=== PATIENT | female | born 1995 | race Caucasian/White ===

== ENCOUNTER → 2017-10-02 | Outpatient (CLI) | payer BC ==
[~2017-10-02] MED LIST: IOPAMIDOL 370 MG/ML 200 ML INFUS..BTL INJ ONE; SODIUM CHLORIDE 0.9% 250ML 250 ML ONE
--- NOTE | 2017-10-02 19:27 | Diagnostic Imaging Report ---
EXAM: CT Abdomen and Pelvis WITHOUT and WITH contrast INDICATION: Hematuria COMPARISON: None. TECHNIQUE: Abdomen and pelvis were scanned utilizing a multidetector helical scanner from the lung base to the pubic symphysis before and after administration of IV contrast. Coronal and sagittal reformations were obtained. Hematuria protocol was performed. Three-D reformatted images were obtained of the kidneys, ureters and urinary bladder IV CONTRAST: 150 mL of Isovue-370 ORAL CONTRAST: Water RADIATION DOSE: Total DLP: 795.85 mGy*cm Estimated effective dose: (DLP x 0.015 x size factor) mSv COMPLICATIONS: None FINDINGS: LINES and TUBES: None. LOWER THORAX: Unremarkable HEPATOBILIARY: No focal hepatic lesions. No biliary ductal dilation. GALLBLADDER: Contracted. No radio-opaque stones or sludge. No wall thickening. SPLEEN: No splenomegaly. PANCREAS: No focal masses or ductal dilatation. 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 Kidneys enhance symmetrically. No hydronephrosis. No cystic or solid mass lesions. No stones. GI TRACT: No abnormal distention, wall thickening, or evidence of bowel obstruction. Appendix is normal. PELVIC ORGANS/BLADDER: Unremarkable. LYMPH NODES: No lymphadenopathy. VESSELS: Unremarkable. PERITONEUM / RETROPERITONEUM: No free air or fluid. BONES: Unremarkable. SOFT TISSUES: Unremarkable. IMPRESSION: 1. Contracted gallbladder. No inflammatory changes are seen in the region. 2. 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 No urinary tract calcifications are seen. Signed by: Dr. Leon Armstrong M.D. on 10/02/2017 7:24 PM
== END ==
LOC: CT 16:44
PROVIDERS: ATTEND Family Medicine
DX: R10.11 Right upper quadrant pain (principal); R11.0 Nausea; M54.5 Low back pain; R31.9 Hematuria, unspecified
CPT/HCPCS: 74178; J7050; Q9967

== ENCOUNTER → 2017-10-09 | Outpatient (CLI) | payer BC ==
[~2017-10-09] MED LIST changes: -IOPAMIDOL 370 MG/ML 200 ML INFUS..BTL INJ ONE; +SINCALIDE 3 MCG/VIAL INJ ONE; -SODIUM CHLORIDE 0.9% 250ML 250 ML ONE
--- NOTE | 2017-10-12 15:05 | Diagnostic Imaging Report ---
EXAM: HIDA Scan INDICATION: 21 F with RUQ abdominal pain with meals x2 weeks Report: Following the administration of 6.6 mCi of Tc-99m mebrofenin, dynamic images of the abdomen in the anterior projection were obtained through 60 minutes. Additional static images were obtained 1.5, 2, 2.5 and 3 hours. Perfusion of the liver is normal. Extraction of tracer from the blood pool by the liver parenchyma is normal. Tracer appears promptly with in the biliary tract. Tracer is seen in the gallbladder by 12 minutes and fills adequately but completely empties at 36 minutes and does not refill again until 90 minutes. Tracer is seen in the small bowel by 10 minutes. It is not possible to obtain a gallbladder ejection fraction on the spontaneous contraction of the gallbladder because of the proximity of the common bile duct and efferent loop of the duodenum, however, the gallbladder completely empties. Impression: 1. Filling of the gallbladder excludes acute cystic duct obstruction/acute cholecystitis. 2. A gallbladder ejection fraction was not obtained because the gallbladder emptied spontaneously and did not refill until 90 minutes. 3. Spontaneous complete emptying of the gallbladder during the study does not support the clinical diagnosis of chronic cholecystitis/gallbladder dyskinesia. Signed by: Dr. Le Potter M.D. on 10/12/2017 3:02 PM
== END ==
LOC: NM 11:16
PROVIDERS: ATTEND Family Medicine
DX: K82.0 Obstruction of gallbladder (principal)
CPT/HCPCS: 78226; 81025; A9537; J2805

== ENCOUNTER → 2017-10-26 | Day surgery (SDC) | payer BC ==
[~2017-10-26] MED LIST changes: +MIDAZOLAM HCL 2 MG/2 ML VIAL ONE; +PANTOPRAZOLE 40 MG 10ML VIAL ONE; -SINCALIDE 3 MCG/VIAL INJ ONE; +TRINESSA1 EACH PO
--- NOTE | 2017-10-26 12:36 | Operative Report ---
DATE OF PROCEDURE: October 26, 2017 REFERRING PHYSICIAN: Dr. Bishnu Alcaraz PROCEDURE PERFORMED: Esophagogastroduodenoscopy with biopsies. INDICATIONS FOR EGD: Upper abdominal pain, heartburn, indigestion. MEDICATION: Patient was done under MAC. Please see anesthesiologist's note. PROCEDURE: With the patient in the left lateral decubitus position, the flexible fiberoptic Olympus gastroscope was introduced into the esophagus under direct visualization without any difficulty. There was some patchy erythema noted in the distal esophagus. The scope was then advanced with ease into the stomach. Mucosa overlying the antrum and the body revealed some diffuse erythema and low-grade edema, and biopsies were obtained and sent to stain for H. pylori. The pylorus was of normal contour and shape. It was intubated with ease, and the scope was advanced all the way to the 2nd portion of the duodenum. The duodenal folds appeared somewhat flattened, and biopsies were obtained to rule out celiac disease. Mucosa overlying the duodenal bulb appeared to be within normal limits. The scope was then withdrawn back into the stomach and retroflexed, and the mucosa overlying the fundus and the cardia appeared to be within normal limits. The scope was then straightened out. The stomach was decompressed. The scope was subsequently withdrawn. Patient tolerated the procedure well. IMPRESSION 1. Mild distal esophagitis. 2. Gastritis, biopsied. Biopsy sent to stain for H. pylori. 3. Rule out sprue. PLAN: Follow up histology. Initiate Protonix 40 mg 1 p.o. q.a.m. a.c. Job#: [id number] cc:ORTEGA ALCARAZ DO
== END | disposition home or self-care (01) ==
LOC: OR 10:46
PROVIDERS: ATTEND Internal Medicine Gastroenterology
DX: K29.70 Gastritis, unspecified, without bleeding (principal); K20.9 Esophagitis, unspecified; K59.00 Constipation, unspecified; I45.6 Pre-excitation syndrome; F32.9 Major depressive disorder, single episode, unspecified; Z88.0 Allergy status to penicillin; Z88.2 Allergy status to sulfonamides
CPT/HCPCS: 43239; 81025; J2250

== ENCOUNTER → 2019-08-29 | Day surgery (SDC) | payer OTHER ==
[~2019-08-29] MED LIST changes: +FENTANYL CITRATE/PF 100MCG/2 ML INJ ONE; +METOCLOPRAMIDE HCL 10 MG/2ML VIAL ONE; +PROPOFOL IV EMULSION 10 MG/ML 20 ML VIAL ONE; +SODIUM CHLORIDE 0.9% 50ML 50 ML ONE
[2019-08-29 13:05] VITALS: BP 103/66
--- NOTE | 2019-08-29 13:21 | Operative Report ---
DATE OF PROCEDURE: 08/29/2019 SURGEON: Jalil Jung MD PROCEDURE: EGD with biopsies. INDICATIONS FOR EGD: Heartburn, bloating. MEDICATIONS: The patient was done under MAC, please see anesthesiologist's note. PROCEDURE IN DETAIL: With the patient in the left lateral decubitus position, a flexible fiberoptic Olympus gastroscope was introduced into the esophagus under direct visualization without any difficulty. There was a minute whitish sessile lesion noted in the cervical esophagus just below the upper esophageal sphincter and that was biopsied to rule out squamous papilloma. The mucosa overlying the distal esophagus revealed some patchy areas of erythema. The scope was then advanced with ease into the stomach and the mucosa overlying the antrum and the body revealed some patchy intense erythema and low-grade edema. Biopsies were obtained and sent to stain for H pylori. Pylorus was of normal contour and shape, it was intubated with ease and the scope was advanced all the way to the second portion of the duodenum. Biopsies were obtained from the proximal second portion and the duodenal bulb. The scope was then withdrawn back into the stomach and retroflexed. Mucosa overlying the fundus and cardia appeared to be within normal limits. The scope was then straightened out, it was subsequently withdrawn. The patient tolerated the procedure well. IMPRESSION: 1. Rule out squamous papilloma, cervical esophagus. 2. Distal esophagitis, mild. 3. Gastritis, biopsied. Biopsies sent to stain for Helicobacter pylori. 4. Rule out sprue. PLAN: Follow up histology. Increase Protonix 40 mg one p.o. a.c. b.i.d. if the patient continues to complain of bloating, then we will do the procedure with gastric emptying study. Jalil Jung MD [facility] [place]/MODL /[id number] cc: Garrett Monahan DO
== END | disposition home or self-care (01) ==
LOC: OR 10:00
PROVIDERS: ATTEND Internal Medicine Gastroenterology
DX: K20.9 Esophagitis, unspecified (principal); K29.70 Gastritis, unspecified, without bleeding; K22.8 Other specified diseases of esophagus; K21.9 Gastro-esophageal reflux disease without esophagitis; K59.00 Constipation, unspecified; R63.4 Abnormal weight loss; Z88.0 Allergy status to penicillin; Z88.2 Allergy status to sulfonamides; Z01.812 Encounter for preprocedural laboratory examination; Z11.59 Encounter for screening for other viral diseases
CPT/HCPCS: 36415; 43239; 84702; 87635; C9113; J2704; J2765; J2250; J3010

== ENCOUNTER → 2019-09-16 | Outpatient (CLI) | payer OTHER ==
[~2019-09-16] MED LIST changes: -FENTANYL CITRATE/PF 100MCG/2 ML INJ ONE; -METOCLOPRAMIDE HCL 10 MG/2ML VIAL ONE; -MIDAZOLAM HCL 2 MG/2 ML VIAL ONE; -PANTOPRAZOLE 40 MG 10ML VIAL ONE; -PROPOFOL IV EMULSION 10 MG/ML 20 ML VIAL ONE; -SODIUM CHLORIDE 0.9% 50ML 50 ML ONE
--- NOTE | 2019-09-16 16:31 | Diagnostic Imaging Report ---
Solid-phase gastric emptying study Reason for examination: Bloating and nausea The protocol used for this study is based on the Consensus Recommendations for Gastric Scintigraphy by the [place] [employer] and the Society of Nuclear Medicine. Clinical information: The patient is not diabetic. The patient has not had prior gastrointestinal surgery. The patient is not on any medications expected to affect gastric motility. The patient has been fasting for at least 6 hours prior to this exam. Radiopharmaceutical: Tc-99m sulfur colloid 1 mCi Report: The patient reports allergy to eggs and dairy products. The radiopharmaceutical was added to instant oatmeal that was then prepared and served to the patient. Th patient was able to take the meal without difficulty. Images were obtained of the abdomen in the anterior and posterior projections at 10 minutes post the meal and at 1, 2, 3, and 4 hours. Uptake was determined from the geometric mean of the anterior and posterior counts and the counts were corrected for decay of the radiolabel. The percent gastric retention of the labeled meal at: 1 hour was 80% (normal 30-90%) 2 hours was 26% (normal <60%) 3 hours was 12% (normal <30%) 4 hours was 4% (normal <10%) Impression: Normal gastric emptying pattern. The findings do not support the clinical diagnosis of gastroparesis. Signed by: Dr. Le Potter M.D. on 09/16/2019 4:27 PM
== END ==
LOC: NM 08:48
PROVIDERS: ATTEND Internal Medicine Gastroenterology
DX: R11.0 Nausea (principal); R14.0 Abdominal distension (gaseous)
CPT/HCPCS: 78264; 81025; A9541

== ENCOUNTER → 2019-09-27 | Outpatient (CLI) | payer OTHER ==
--- NOTE | 2019-09-27 16:09 | Diagnostic Imaging Report ---
Small bowel follow-through Comparison: None Clinical History: Abdominal bloating with small amounts of oral intake, difficulty to digest meats, weight loss of 15-20 pounds over the past 2 months. Total Patient Fluoro Time: 0.4 minutes Radiation dose: 3.23 mGy Kerma-area. Total number of images submitted: Multiple. Skin Washer radiographs were obtained. After oral ingestion of barium overhead x-ray images were obtained over the abdomen periodically until the barium across the ileocecal valve. Spot compression views of the areas of interest were attempted but could not be obtained due to burnthrough due to technical reasons and at least in part because of the patient's lean body habitus. This significantly decreases the diagnostic sensitivity of this exam. Report: Skin Washer: Nonobstructive bowel gas pattern. Copious amounts of fecal matter. No calculi. No pneumatosis. No air over the liver. 5 lumbar type vertebrae. No aggressive bony lesions seen. Lower chest unremarkable as seen on the subsequent images. There is no evidence of intrinsic or extrinsic mass effect or mass involving the stomach or duodenum. The colon was visualized in 2 hours. The terminal ileum is not well-visualized due to overlapping loops. There is no evidence of bowel obstruction. The small bowel loops are dilated and the small bowel folds are not thickened. Impression: Unremarkable small bowel follow through exam. Signed by: Bandar Escobedo MD on 09/27/2019 4:06 PM
== END ==
LOC: DX 09:40
PROVIDERS: ATTEND Internal Medicine Gastroenterology
DX: R14.0 Abdominal distension (gaseous) (principal); R11.0 Nausea
CPT/HCPCS: 74250; 81025; U0002

== ENCOUNTER 2019-10-14 22:03 | Observation (INO) | payer OTHER ==
[~2019-10-14] VITALS: Ht 165.1 cm; Wt 44.0 kg
[2019-10-14] MEDS ORDERED: SODIUM CHLORIDE 0.9% 1000ML 1,000 ML IV ONE (22:30)
[2019-10-14 22:52] LABS: BASOPHILS # (AUTO) 0.1 (0.0-0.1); BASOPHILS % 0.9 % (0.0-1.0); EOSINOPHILS # (AUTO) 0.2 (0.0-0.4); EOSINOPHILS % 3.6 % (0.0-6.0); HEMATOCRIT 43.4 % (34.2-44.1); HEMOGLOBIN 14.5 g/dL (12.0-16.0); LYMPHOCYTES # (AUTO) 2.4 (1.0-3.2); LYMPHOCYTES % 42.6 % (18.0-39.1); MEAN CORPUSCULAR HEMOGLOBIN 30.3 pg (28-32); MEAN CORPUSCULAR HGB CONC 33.4 g/dL (31-35); MEAN CORPUSCULAR VOLUME 90.8 fL (81-99); MONOCYTES # (AUTO) 0.5 (0.2-0.8); MONOCYTES % 8.4 % (4.4-11.3); NEUTROPHILS # (AUTO) 2.5 (2.1-6.9); NEUTROPHILS % 44.3 % (38.7-80.0); PLATELET COUNT 205 x10e3/uL (140-360); RED BLOOD COUNT 4.78 x10e6/uL (3.6-5.1); RED CELL DISTRIBUTION WIDTH 12.9 % (11.7-14.4)
[2019-10-14 22:54] LABS: CLARITY,URINE CLEAR (CLEAR); COLOR,URINE YELLOW (YELLOW)
[2019-10-14 22:55] LABS: AMPHETAMINES SCREEN,URINE NEGATIVE (NEGATIVE); BENZODIAZEPINES SCREEN,URINE NEGATIVE (NEGATIVE); BILIRUBIN,URINE NEGATIVE (NEGATIVE); KETONES,URINE TRACE (NEGATIVE); LEUKOCYTE ESTERASE ,URINE TRACE (NEGATIVE); NITRITE,URINE NEGATIVE (NEGATIVE); PHENCYCLIDINE SCREEN,URINE NEGATIVE (NEGATIVE); PREGNANCY TEST, URINE NEGATIVE (NEGATIVE); PROTEIN,URINE DIPSTICK NEGATIVE (NEGATIVE); URINE UROBILINOGEN 0.2 mg/dL (0.2 - 1)
--- NOTE | 2019-10-14 22:56 | Emergency Department Note ---
History of Present Illnes History of Present Illness Chief Complaint: General Medicine Complaints History of Present Illness This is a 23 year old female has been under the care of dr freeman for recurrent weight loss, nausea and vomiting for 3 months. comes to the ed tonight due to racing heart rate and palpitations. STATES HER HEART HAS BEEN BEATING FAST ALL WEEK. . Historian: Patient Arrival Mode: Car EMS Treatment [employer]: IV Onset (how long ago): day(s) (7) Location: CHEST Quality: PALPITATIONS, HEART RACING Radiation: Reports non-radiation Severity: mild Onset quality: gradual Duration (how long): day(s) (7) Timing of current episode: intermittent Progression: worsening Chronicity: new Context: Reports recent illness (WEIGHT LOSS OVER LAST FEW MONTHS); Denies recent surgery Relieving factors: none Exacerbating factors: none Associated symptoms: Reports denies other symptoms Treatments prior to arrival: none Past Medical/Family History Physician Review I have reviewed the patient's past medical and family history. Any updates have been documented here. Past Medical History Recent Fever: No Clinical Suspicion of Infectio: No New/Unexplained Change in Ment: No Other Medical History: GREEN PARKINSONS GASTRITIS ANXIETY OVARIAN CYSTS Other Surgery: CARDIAC ABLATION Social History Smoking Cessation: Never Smoker Alcohol Use: None Any Illegal Drug Use: No Family History Family history of heart diseas: No Review of Systems Review of Systems Constitutional: Reports no symptoms EENTM: Reports no symptoms Cardiovascular: Reports as per HPI Respiratory: Reports no symptoms Gastrointestinal: Reports no symptoms Genitourinary: Reports no symptoms Musculoskeletal: Reports no symptoms Integumentary: Reports no symptoms Neurological: Reports no symptoms Psychological: Reports no symptoms Endocrine: Reports no symptoms Hematological/Lymphatic: Reports no symptoms Physical Exam Related Data Allergies: Coded Allergies: Penicillins (Verified Allergy, Intermediate, hives, 10/14/19) Sulfa (Sulfonamide Antibiotics) (Verified Allergy, Intermediate, HIVES, 10/14/19) Uncoded Allergies: PCN (Allergy, Intermediate, HIVES, 10/22/17) SULFA (Allergy, Intermediate, HIVES, 10/22/17) Triage Vital Signs Vital Signs Date Time Temp Pulse Resp B/P (MAP) Pulse Ox O2 Delivery O2 Flow Rate FiO2 10/14/19 22:30 98.6 127 16 123/100 100 Room Air Vital signs reviewed: Yes Physical Exam CONSTITUTIONAL Constitutional: Present other (MALNOURISHED APPERANCE) HENT HENT: Present normocephalic, Present atraumatic, Present oropharynx clear/moist, Present nose normal HENT L/R: Present left ext ear normal, Present right ext ear normal EYES Eyes: Reports PERRL, Reports conjunctivae normal NECK Neck: Present ROM normal PULMONARY Pulmonary: Present effort normal, Present breath sounds normal CARDIOVASCULAR Cardiovascular: Present regular rhythm, Present heart sounds normal, Present capillary refill normal, Present tachycardia (110) GASTROINTESTINAL Abdominal: Present soft, Present nontender, Present bowel sounds normal GENITOURINARY Genitourinary: Present exam deferred SKIN Skin: Present warm, Present dry MUSCULOSKELETAL Musculoskeletal: Present ROM normal NEUROLOGICAL Neurological: Present alert, Present oriented x 3, Present no gross motor or sensory deficits PSYCHOLOGICAL Psychological: Present mood/affect normal, Present judgement normal Procedures 12 Lead ECG Interpretation ECG Interpretation : ECG: ECG 1 Assembly Manager: Interpreted by ED physician Date: Oct 14, 2019 Time: 22:28 Rate: tachycardia BPM: 101 QRS axis: right Conduction: right bundle branch block ST segments normal: No T waves normal: No Clinical Impression: abnormal ECG Additional Comments NON SPECIFIC ST AND T CHANGES Assessment & Plan Medical Decision Making MDM PT WITH SEVERAL MONTHS OF WEIGHT LOSS AND NOW WITH RAPID HEART RATE AND PALPITATIONS CBC,CMP, EKG, CARDIAC ENZYMES, THYROID PANEL, CXR, UA, UDS, MAGNESIUM ORDERED TO EVAL FOR ELECTROLYTE ABNORMALITY, UTI, INTRATHORACIC ABNORMALITY, PULMONARY EM BOLISM, HYPER THYROID, DRUG ABUSE 1 LITER NS IV ORDERED I SPOKE WITH DR NOLASCO AND Kaykay KRAFT, PLACE PT IN OBS FOR HYDRATION, START ON REGLAN, ORDER CELIAC DISEASE PANEL Reassessment Reassessment time: 00:20 Reassessment HEART RATE 65 AFTER 1 LITER NS IV Assessment & Plan Final Impression: (1) Dehydration (2) Palpitations (3) Weight loss (4) Orthostasis Depart Disposition: ADMITTED Last Vital Signs Date Time Temp Pulse Resp B/P (MAP) Pulse Ox O2 Delivery O2 Flow Rate FiO2 10/14/19 22:30 98.6 127 16 123/100 100 Room Air Home Meds No Active Prescriptions or Reported Meds Medications in the ED Sodium Chloride 1,000 ml @ 0 mls/hr Q0M ONCE IV ; Start 10/14/19 at 22:30; Stop 8/7/20 at 22:33; Status DC MUSTAPHA ALONSO MD Oct 14, 2019 22:56
[2019-10-14 22:58] LABS: BACTERIA,URINE MODERATE /HPF; EPITHELIAL CELLS,URINE MODERATE /LPF; RBC,URINE 0-5 /HPF (0-5)
[2019-10-14 23:12] LABS: ALANINE AMINOTRANSFERASE 31 IU/L (0-55); ALBUMIN/GLOBULIN RATIO 1.6 (0.8-2.0); ALKALINE PHOSPHATASE 83 IU/L (40-150); ANION GAP 14.2 mmol/L (8-16); BLOOD UREA NITROGEN 10 mg/dL (7-26); BUN/CREATININE RATIO 12 (6-25); CARBON DIOXIDE 23 mmol/L (22-29); CHLORIDE 107 mmol/L (98-107); CREATINE KINASE 48 IU/L (29-168); CREATININE, SERUM 0.81 mg/dL (0.57-1.11); EST GLOMERULAR FILTRATION RATE > 60 ML/MIN (60-); GLUCOSE 99 mg/dL (74-118); MAGNESIUM 2.1 MG/DL (1.3-2.1); POTASSIUM 4.2 mmol/L (3.5-5.1); SODIUM 140 mmol/L (136-145)
--- OUTSIDE RECORDS SUMMARY | 2019-10-14 23:12 | XMS REPORT | Continuity of Care Document ---
Author Author [facility] t Organization [facility] Address [address] [place] [address] Phone Unavailable Care Team Providers Care Supervisor Felling Bucking Name Role Phone Taniya ALEXANDER, Kelly Tucker PCP Loly ALEXANDER, Deandra Attphys JENNY KRAFT Attphys Unavailable Gagandeep ALEXANDER, Keny Werner Attphys [phone] ORTEGA ALCARAZphyleigh Unavailable Payers Payer Name Policy Type Policy Number Effective Date Expiration Date Leigh son [facility] [employer] HMO/POS/PPOxxxxxxxxx5- PresentPPO xxxxxxxxx 2019 00:00:00 Roby Saunders Problems This patient has no known problems. Allergies, Adverse Reactions, Alerts Allergy Name Allergy Type Status Severity Reaction(s) Onset Date Inacti ve Date Treating Clinician Comments Source Penicillins Propensity to adverse reactions to drug Active Rash 2019-03-18 00:00:00 Roby galeano Sulfa (Sulfonamide Antibiotics) Propensity to adverse reactions to drug Active Rash 2019-03-18 00:00:00 Krista Saunders Social History Social Habit Start Date Stop Date Quantity Comments Source Sex Assigned At Diamond nicolaskelly Saunders Exposure to SARS-CoV-2 (event) Not sure Roby Saunders Alcohol intake 2019-09-28 00:00:00 2019-09-28 00:00:00 Roby Saunders Smoking Status Start Date Stop Date Source Never smoker Roby galeano Medications Ordered Medication Name Filled Medication Name Start Date Stop Da te Current Medication? Ordering Clinician Indication Dosage Frequency Signature (SIG) Comments Components Source baclofen (LIORESAL) 10 MG tablet 2019-08-24 00:00:00 2019-09 23:59:00 No Neck pain 10mg QD Take 1 tablet (10 mg total) by mouth every evening for 30 days. Roby Saunders Vital Signs Vital Name Observation Time Observation Value Comments Source Body height 2019-09-20 13:14:00 165.1 cm Roby Saunders Body weight 2019-09-20 13:14:00 43.999 kg Roby Saunders BMI 2019-09-20 13:14:00 16.14 kg/m2 Roby Saunders Systolic blood pressure 2019-08-24 13:30:00 127 mm[Hg] Roby Saunders Diastolic blood pressure 2019-08-24 13:30:00 89 mm[Hg] Roby Saunders Heart rate 2019-08-24 13:30:00 79 /min Roby Saunders Respiratory rate 2019-03-18 23:00:00 20 /min Harsha Saunders Oxygen saturation in Arterial blood by Pulse oximetry 03-18 23:00:00 100 /min Roby Saunders Body temperature 2019-03-18 20:47:00 36.33 Madhuri Harsha Saunders Procedures Procedure Date / Time Performed Performing Clinician [facility] vanita MRI CERVICAL SPINE W WO CONTRAST 2019-09-20 15:11:08 LolyDeandra alcantar MRI BRAIN W WO CONTRAST 2019-09-20 14:54:58 Deandra Bay COMPREHENSIVE METABOLIC PANEL 2019-08-24 14:46:00 Deandra Bay CBC WITH PLATELET AND DIFFERENTIAL 2019-08-24 14:46:00 Deandra Bay VITAMIN D 25 HYDROXY LEVEL 2019-08-24 14:46:00 Deandra Bay THYROID STIMULATING HORMONE 2019-08-24 14:46:00 Deandra Bay T4, FREE 2019-08-24 14:46:00 Deandra Bay Meth odjuliana PIETER W/REFLEX IF POSITIVE 2019-08-24 14:46:00 Deandra Bay SSA/SSB ANTIBODY 2019-08-24 14:46:00 Deandra Bay hodjuliana RHEUMATOID FACTOR 2019-08-24 14:46:00 Deandra Bay Me thodist THYROID STIMULATING HORMONE 2019-03-18 22:50:00 Rey Mortensen T4, FREE 2019-03-18 22:50:00 Rey Mortensen [facility] XR CHEST 2 VW 2019-03-18 21:37:25 Rey Mortensen [facility] B NATRIURETIC PEPTIDE 2019-03-18 21:00:00 Rey Mortensen HC COMPLETE BLD COUNT W/AUTO DIFF 2019-03-18 21:00:00 Netta Mortensen se COMPREHENSIVE METABOLIC PANEL 2019-03-18 21:00:00 Rey Mortensen TROPONIN 2019-03-18 21:00:00 Rey Mortensen [facility] D-DIMER 2019-03-18 21:00:00 Rey Mortensen [facility] ESTIMATED GFR 2019-03-18 21:00:00 Rey Mortensen [facility] ECG ED PRELIMINARY INTERPRETATION 2019-03-18 20:53:31 Netta Mortensen seist ECG 12-LEAD 2019-03-18 20:48:45 Rey Mortensen [facility] Plan of Care Planned Activity Planned Date Details Comments Source Future Scheduled Test 2019-10-08 00:00:00 INFLUENZA VACCINE [code = INFLUENZA VACCINE] Roby Saunders Future Scheduled Test 2018 00:00:00 Screening for avinash gnant neoplasm of cervix (procedure) [code = 474497383] Roby Barry t Future Scheduled Test 2013 00:00:00 CHLAMYDIA SCREENIN G [code = CHLAMYDIA SCREENING] Roby Saunders Encounters Start Date/Time End Date/Time Encounter Type Admission Type Attendi [facility] Care Department Encounter ID Source 2019-09-28 00:00:00 2019-09-28 00:00:00 Outpatient [facility] [id number] Roby Saunders 2019-09-20 00:00:00 2019-09-20 00:00:00 Outpatient [facility] [id number] Roby Saunders 2019-09-20 00:00:00 2019-09-20 00:00:00 Outpatient [facility] [id number] Roby Saunders 2019-08-24 00:00:00 2019-08-24 00:00:00 Outpatient [facility] [id number] Roby Saunders 2019-08-24 00:00:00 2019-08-24 00:00:00 Outpatient [facility] [id number] Roby Saunders 2019-03-18 00:00:00 2019-03-18 00:00:00 Emergency REY MORTENSEN 064 [id number] [facility] Results Test Description Test Time Test Comments Results Result Comments Source SMALL BOWEL SERIES 2019-09-27 15:46:00 [facility] [address] [address] Patient Name: FLORENCIA WHALEY MR #: [id number] : 1995 Age/Sex: 23/F Req #: [id number] Adm Physician: Ordered by: JENNY KRAFT MD Report #: [id number] Location: DX Room/Bed: Procedure: [id number] DX/SMALL BOWEL SERIES Exam Date: 09/27/19 Exam Time: 1423 REPORT STATUS: Signed Small bowel follow-through Comparison: None Clinical History: Abdominal bloating with small amounts of oral intake, difficulty to digest meats, weight loss of 15-20 pounds over the past 2 months. Total Patient Fluoro Time: 0.4 minutes Radiation dose: 3.23 mGy Kerma-area. Total number of images submitted: Multiple. Drafter Detail radiographs were obtained. After oral ingestion of barium overhead x-ray images were obtained over the abdomen periodically until the barium across the ileocecal valve. Spot compression views of the areas of interest were attempted but could not be obtained due to burnthrough due to technical reasons and at least in part because of the patient's lean body habitus. This significantly decreases the diagnostic sensitivity of this exam. Report: Drafter Detail: Nonobstructive bowel gas pattern. Copious amounts of fecal matter. No calculi. No pneumatosis. No air over the liver. 5 lumbar type vertebrae. No aggressive bony lesions seen. Lower chest unremarkable as seen on the subsequent images. There is no evidence of intrinsic or extrinsic mass effect or mass involving the stomach or duodenum. The colon was visualized in 2 hours. The terminal ileum is not well-visualized due to overlapping loops. There is no evidence of bowel obstruction. The small bowel loops are dilated and the small bowel folds are not thickened. Impression: Unremarkable small bowel follow through exam. Signed by: Bandar Hargrove MD on 09/27/2019 4:06 PM Dictated By: BANDAR HARGROVE MD 05 Transcribed By: ZECHARIAH on 09/27/19 160 COPY TO: JENNY KRAFT MD GASTRIC EMPTYING 2019-09-16 16:24:[address] [address] Patient Name: FLORENCIA WHALEY MR #: [id number] : 1995 Age/Sex: 23/F Req #: [id number] Adm Physician: Ordered by: JENNY KRAFT MD Report #: [id number] Location: [place] Room/Bed: Procedure: [id number] NM/GASTRIC EMPTYING Exam Date: 09/16/19 Exam Time: 1000 REPORT STATUS: Signed Solid-phase gastric emptying study Reason for examination: Bloating and nausea The protocol used for this study is based on the Consensus Recommendations for Gastric Scintigraphy by the [place] Neurogastroenterology and Motility Society and the Society of Nuclear Medicine. Clinical information: The patient is not diabetic. The patient has not had prior gastrointestinal surgery. The patient is not on any medications expected to affect gastric motility. The patient has been fasting for at least 6 hours prior to this exam. Radiopharmaceutical: Tc-99m sulfur colloid 1 mCi Report: The patient reports allergy to eggs and dairy products. The radiopharmaceutical was added to instant oatmeal that was then prepared and served to the patient. Th patient was able to take the meal without difficulty. Images were obtained of the abdomen in the anterior and posterior projections at 10 minutes post the meal and at 1, 2, 3, and 4 hours. Uptake was determined from the geometric mean of the anterior and posterior counts and the counts were corrected for decay of the radiolabel. The percent gastric retention of the labeled meal at: 1 hour was 80% (normal 30-90%) 2 hours was 26% (normal <60%) 3 hours was 12% (normal <30%) 4 hours was 4% (normal <10%) Impression: Normal gastric emptying pattern. The findings do not support the clinical diagnosis of gastroparesis. Signed by: Dr. Virginia Potter M.D. on 09/16/2019 4:27 PM Dictated By: VIRGINIA POTTER MD 26 Transcribed By: ZECHARIAH on 09/16/191626 COPY TO: JENNY KRAFT MD Comprehensive metabolic panel 2019-08-26 14:10:00 Test Item Glucose (test code = 2345-7) 91 mg/dL 65-99 BUN (test code = 3094-0) 12 mg/dL 6-20 Creatinine (test code = 2160-0) 0.67 mg/dL 0.57-1 EGFR Non-Afr. [place] (test code = 2775) 126 mL/min/1.73 >59 EGFR (test code = 2774) 145 mL/min/1.73 >59 BUN/creatinine ratio (test code = 3097-3) 18 9-23 Sodium (test code = 2951-2) 140 mmol/L 134-144 Potassium (test code = 2823-3) 4.1 mmol/L 3.5-5.2 Chloride (test code = 2075-0) 98 mmol/L 96-106 CO2 (test code = 2027-9) 21 mmol/L 20-29 Calcium (test code = 27072-0) 9.7 mg/dL 8.7-10.2 Protein (test code = 2885-2) 7.6 g/dL 6-8.5 Albumin, S (test code = 1751-7) 4.9 g/dL 3.9-5 Globulin, total (test code = 32459-3) 2.7 g/dL 1.5-4.5 Albumin/globulin ratio (test code = 1759-0) 1.8 1.2-2.2 Total bilirubin (test code = 1975-2) 0.5 mg/dL 0-1.2 Alkaline phosphatase (test code = 6768-6) 90 39- 117 IU/L AST (test code = 1920-8) 30 0- 40 IU/L ALT (test code = 1742-6) 32 0- 32 IU/L GLADYS (test code = GLADYS) Performed at: [address] [place] [address] [id number] Director: Israel Lim MD, Phone: [phone] [facility] MethodistT4, [id number] 14:10:00* Test Item Value Reference Range Interpretation Comments T4, free (test code = 3024-7) 1.15 ng/dL 0.82-1.77 GLADYS (test code = GLADYS) Performed at: [address] [place] [address] [id number] Director: Israel Lim MD, Phone: [phone] Magnet MethodistThyroid stimulating bafxnxd9295-15-10 14:10:00* Test Item Value Reference Range Interpretation Comments TSH (test code = 61539-6) 1.390 0.450- 4.500 uIU/mL GLADYS (test code = GLADYS) Performed at: [address] [place] [address] [id number] Director: Israel Lim MD, Phone: [phone] [facility] MethodistRheumatoid ymbvhd0508-63-64 14:10:00* Test Item Value Reference Range Interpretation Comments Rheumatoid arthritis latex turbid (test code = 09187-5) <10.0 0.0- 13.9 IU/mL GLADYS (test code = GLADYS) Performed at: - [facility] [place], [place] [id number] Director: Israel Lim MD, Phone: [phone] [facility] with platelet and yjdicbjfuvao9049-11-75 14:10:00* Test Item Value Reference Range Interpretation Comments WBC (test code = 6690-2) 5.2 3.4- 10.8 x10E3/uL RBC (test code = 789-8) 4.32 3.77- 5.28 x10E6/uL HGB (test code = 718-7) 13.1 g/dL 11.1-15.9 HCT (test code = 4544-3) 41.2 % 34-46.6 MCV (test code = 787-2) 95 fL 79-97 MCH (test code = 785-6) 30.3 pg 26.6-33 MCHC (test code = 786-4) 31.8 g/dL 31.5-35.7 RDW (test code = 788-0) 13.1 % 11.7-15.4 Platelet count (test code = 777-3) 205 150- 450 x10E3/uL Neutrophils (test code = 770-8) 53 % Not Estab. Lymphocytes (test code = 736-9) 34 % Not Estab. Monocytes (test code = 5905-5) 8 % Not Estab. Eosinophils (test code = 713-8) 4 % Not Estab. Basophils (test code = 706-2) 1 % Not Estab. Neutrophils, absolute (test code = 751-8) 2.8 1.4- 7.0 x10 E3/uL Lymphocytes, absolute (test code = 731-0) 1.8 0.7- 3.1 x10 E3/uL Monocytes, absolute (test code = 742-7) 0.4 0.1- 0.9 x10E3 /uL Eosinophils, absolute (test code = 711-2) 0.2 0.0- 0.4 x10 E3/uL Basophils, absolute (test code = 704-7) 0.0 0.0- 0.2 x10E3 /uL Immature granulocytes (test code = 11781-4) 0 % Not Estab. Immature grans (abs) (test code = 71845-7) 0.0 0.0- 0.1 x1 0E3/uL GLADYS (test code = GLADYS) Performed at: [address] [place] [address] [id number] Director: Israel Lim MD, Phone: [phone] Magnet MethodistVitamin D 25 hydroxy [id number] 14:10:00* Test Item Value Reference Range Interpretation Comments Vitamin D, 25-hydroxy (test code = 58629-5) 22.2 ng/mL 30-100 L Vitamin D deficiency has been defined by the [place] of[place]icine and an Endocrine Society practice guideline as alevel of serum 25-OH vitamin D less than 20 ng/mL (1,2).The Endocrine Society went on to further define vitamin Dinsufficiency as a level between 21 and 29 ng/mL (2).1. IOM ([place] of Medicine). 2010. Dietary reference intakes for calcium and D. [place]: The National Academies Press.2. Tatiana MF, Leni NC, Paulino YEN, et al. Evaluation, treatment, and prevention of vitamin D deficiency: an Endocrine Society clinical practice guideline. JCEM. 2010; 96(7):1911-30. GLADYS (test code = GLADYS) Performed at: [address] [place] [address] [id number] Director: Israel Lim MD, Phone: [phone] Lab Interpretation (test code = 61280-2) Abnormal Magnet MethodistSSA/SSB oixlikho3181-94-01 14:10:00* Test Item Value Reference Range Interpretation Comments Sjogren's SS-A antibody (test code = 32839-0) <0.2 0.0- 0.9 AI Sjogren's SS-B antibody (test code = 67000-4) <0.2 0.0- 0.9 AI GLADYS (test code = GLADYS) Performed at: [address] [place] [address] [id number] Director: Israel Lim MD, Phone: [phone] Magnet MethodistANA w/Reflex if Undqfzta1448-76-22 14:10:00* Test Item Value Reference Range Interpretation Comments PIETER direct (test code = 8061-4) Negative Negative GLADYS (test code = GLADYS) Performed at: 01 - [facility] [place], [place] [id number] Director: Israel Lim MD, Phone: [phone] Magnet OrmujkbssX-mucwy5834-79-10 23:15:46* Test Item Value Reference Range Interpretation Comments D-dimer (test code = 47316-4) <0.27 0.00- 0.40 ug/mL FEU Units are ug/ml Fibrinogen Equivalent Unit.When combined with low clinical probability, D-dimer results of less than 0.5 ug/ml FEU have a good negative predictive value in excluding PE or DVT. For D-dimer results greater than 0.5 ug/ml FEU further testing is indicated if PE or DVT is suspected clinically.Elevated D-dimer results have been reported in DVT, PE, and DIC cases and may indicate the pre sence of a clot. D-dimer results may be elevated due to old age, , inflammatory diseases, trauma, post-operative states, sepsis, and malignancies. Magnet EkgowbwsfVppdukxq7314-54-05 23:01:35* Test Item Value Reference Range Interpretation Comments Troponin (test code = 67406-6) 0.019 ng/mL 0-0.04 In patients suspected of having a myocardial infarction, along with all other appropriate clinical measures and actions including ECG and other diagnostics as appropriate, measure Ultra TnI at 0 hrs and at 3 hrs.Myocardial infarction VERY LIKELYThe 0 hr TnI level is > 0.10 ng/mL Felipe cardial infarction LIKELYThe 0 hr TnI level is > 0.04 ng/mL and 3 hr level is increased or decreased by at least 0.020 ng/mL Myocardi al infarction VERY UNLIKELYBoth the 0 hr and 3 hr TnI levels <= 0.04 ng/mL(within normal limits) OR 0 hr is > 0.04 ng/mL and 3 hr is increased OR decreased by less than 0.020 ng/mL Ca MethodistB natriuretic wqlukvp2645-10-58 23:00:12* Test Item Value Reference Range Interpretation Comments BNP (test code = 68913-7) 9 pg/mL 0-100 Magnet MethodistEstimated [id number] 22:32:40* Test Item Value Reference Range Interpretation Comments Estimated GFR (test code = 5488) >=90 mL/min/1.73 m2 Catergory Units InterpretationG1 >=90 Normal or highG2 60-89 Mildly juzyqljbfZ5j 45-59 Mildly to moderately ibdhdvyaiG9h 30-44 Moderately to severely decreasedG4 15-29 Severely decreasedG5 <15 Kidney failureThe eGFR was calculated using the Chronic Kidney Disease Epidemiology Collaboration (CKD-EPI) equation. Interpretation is based on recommendations of the National Kidney Foundation-Kidney Disease Outcomes Quality Initiative (NKF-KDOQI) published in 2014. Ca MethodistECG 12 wbde4921-80-78 21:56:02* Test Item Value Reference Range Interpretation Comments Ventricular rate (test code = 253) 105 Atrial rate (test code = 255) 105 NC interval (test code = 266) 140 QRSD interval (test code = 260) 106 QT interval (test code = 264) 342 QTC interval (test code = 265) 452 P axis 1 (test code = 267) 78 QRS axis 1 (test code = 268) 91 T wave axis (test code = 270) 37 EKG impression (test code = 273) Sinus tachycardia-Rig ht atrial enlargement- Incomplete right bundle branch block-Possible Right ventricular hypertrophy- Abnormal ECG-No previous ECGs available- Ca MethodistXR Chest 2 [id number] 21:39:33Hm Interface, Radiology Results Incoming - 03/18/2019 9:42 PM CSTEXAMINATION: XR CHEST 2 VWCLINICAL HISTORY: chest painCOMPARISON: NoneIMPRESSION:1. The heart and pulmonary vasculature are within normal limits.2. No infiltrate or effusion is demonstrated.3. There is no acute osseous pathology.CONCLUSION: NO RADIOGRAPHIC EVIDENCE OF ACUTE CARDIOPULMONARY ABNORMALITY.[facility]-[id number] MethodNov[facility] ED Preliminary Interpretation - Not an Ehcsn8179-78-06 20:53:31* Test Item Value Reference Range Interpretation Comments GLADYS (test code = GLADYS) Rey Mortensen MD 03/19/2019 5:23 [facility] ED Preliminary Interpretation - Not an OrderPerformed by: Rey Mortensen MDAuthorized by: Rey Mortensen MD ECG reviewed by ED Physician in the absence of a director communications: no Interpretation: Interpretation: abnormal Rate: ECG rate: 105 ECG rate assessment: tachycardic Rhythm: Rhythm: sinus tachycardia QRS: QRS axis: Normal QRS intervals: NormalConduction: Conduction: abnormal Abnormal conduction: incomplete RBBB ST segments: ST segments: Non-specific Depression: V3, V4, V5 and V6T waves: T waves: n ormal Comments: R atrial enlargement Lab Interpretation (test code = 85016-4) Abnormal [facility] CenterZghsbpdpwDVLQDQSUXOLT1984-86-24 16:14:[address] [address] Patient Name: FLORENCIA WHALEY MR #: [id number] : 1995 Age/Sex: 21/F Req #: [id number] Adm Physician: Ordered by: ORTEGA ALCARAZ DO Report #: [id number] Location: [place] Room/Bed: Procedure: [id number] NM/HEPTOBILIARY Exam Date: Exam Time: 1215 REPORT STATUS: Signed EXA M: HIDA Scan INDICATION: 21 F with RUQ abdominal pain with meals x2 weeks Report: Following the administration of 6.6 mCi of Tc-99m mebrofenin, dynamic images of the abdomen in the anterior projection were obtained through 60 minutes. Additional static images were obtained 1.5, 2, 2.5 and 3 hours. P erfusion of the liver is normal. Extraction of tracer from the blood pool by the liver parenchyma is normal. Tracer appears promptly with in the biliary t ract. Tracer is seen in the gallbladder by 12 minutes and fills adequately bu t completely empties at 36 minutes and does not refill again until 90 minutes. Tracer is seen in the small bowel by 10 minutes. It is not possible to obtain a gallbladder ejection fraction on the spontaneous contraction of the g allbladder because of the proximity of the common bile duct and efferent loop of the duodenum, however, the gallbladder completely empties. Impression : 1. Filling of the gallbladder excludes acute cystic duct obstruction/acu te cholecystitis. 2. A gallbladder ejection fraction was not obtained bec ause the gallbladder emptied spontaneously and did not refill until 90 minutes . 3. Spontaneous complete emptying of the gallbladder during the study does not support the clinical diagnosis of chronic cholecystitis/gallbladder dyski nesia. Signed by: Dr. Virginia Potter M.D. on 10/12/2017 3:02 PM Dictated By: VIRGINIA POTTER MD 1502 Transcribed By: ZECHARIAH on 10/12/17 1502 COPY TO: ORTEGA ALCARAZ DO CT ABDOMEN/PELVIS [id number] 19:17:[address] [address] Patient Name: FLORENCIA WHALEY MR #: [id number] : 1995 Age/Sex: 21/F Req #: [id number] Adm Physician: Ordered by: ORTEGA ALCARAZ DO Report #: [id number] Location: CT Room/Bed: Procedure: [id number] CT/CT ABDOMEN/PELVIS WOW Exam Gustavo e: 10/02/17 Exam Time: 1850 REPORT STATUS: Sign ed EXAM: CT Abdomen and Pelvis WITHOUT and WITH contrast INDICATION: Timmy turia COMPARISON: None. TECHNIQUE: Abdomen and pelvis were scanned utilWatrHubin g a multidetector helical scanner from the lung base to the pubic symphysis be fore and after administration of IV contrast. Coronal and sagittal reformation s were obtained. Hematuria protocol was performed. Three-D reformatted images were obtained of the kidneys, ureters and urinary bladder IV CON TRAST: 150 mL of Isovue-370 ORAL CONTRAST: Water RAD IATION DOSE: Total DLP: 795.85 mGy*cm Estimated effective dose: ( DLP x 0.015 x size factor) mSv COMPLICATIONS: None FINDINGS: LINES and TUBES: None. LOWER THORAX: Unremarkable HEPATOBILIARY: No focal hepatic lesions. No biliary ductal dilation. GALLBLADDER: C ontracted. No radio-opaque stones or sludge. No wall thickening. SPLEEN: N o splenomegaly. PANCREAS: No focal masses or ductal dilatation. 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 Kidneys enhance symmetrically. No hydronephrosi s. No cystic or solid mass lesions. No stones. GI TRACT: No abnormal dis tention, wall thickening, or evidence of bowel obstruction. Appendix is normal. PELVIC ORGANS/BLADDER: Unremarkable. LYMPH NODES: No lymphaden opathy. VESSELS: Unremarkable. PERITONEUM / RETROPERITONEUM: No free a ir or fluid. BONES: Unremarkable. SOFT TISSUES: Unremarkable. IMPRESSION: 1. Contracted gallbladder. No inflammatory changes are seen in the region. 2. 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 No urinary tract calcifications are seen. Signed by: Dr. Christopher morrissey M.D. on 10/02/2017 7:24 PM Dictated By: CHRISTOPHER SCHMIDT MD, MD Electron ically Signed By: CHRISTOPHER SCHMIDT MD, MD on 10/02/171923 Transcribed By: ZECHARIAH on 10/02/171923 COPY TO: ORTEGA ALCARAZ DO
--- OUTSIDE RECORDS SUMMARY | 2019-10-14 23:12 | XMS REPORT | Clinical Summary ---
Author Author [facility] Address Unknown Phone Unavailable Care Team Providers Care Inflated Pad Buffer Name Role Phone Garrett Monahan MD PCP Allergies Comments Active Allergy Reactions Severity Noted Date Penicillins Rash Low 03/18/2019 Sulfa (Sulfonamide Rash Low 03/18/2019 Antibiotics) Medications End Date Status Medication Sig Dispensed Refills Start Date 09/23/2019 baclofen (LIORESAL) 10 MG Take 1 tablet 30 tablet 1 tabletIndications: Neck (10 mg total) 0 pain by mouth every evening for 30 days. 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); Pineal gland cyst; Vitamin D deficiency 09/28/2019 Telemedicine Neurology 09/23/2019 Travel 09/20/2019 Travel Stacey Salcido MD Demyelinating changes in brain (HCC); Myelitis (HCC); Vitamin D deficiency; Hyperthyroidism 08/24/2019 Lab Lab Stacey Salcido MD Neck pain (Primary Dx); Migraine without aura and without status migrainosus, not intractable; Concussion without loss of consciousness, initial encounter; Demyelinating changes in brain (HCC); Myelitis (HCC); Hyperthyroidism; Vitamin D deficiency 08/24/2019 Office Visit Neurology 08/24/2019 Travel Alphonso Donis MD Other chest pain (Primary Dx) 03/18/2019 Emergency Emergency Medicine after 10/13/2018 Social History Date Tobacco Use Types Packs/Day Years Used Never Smoker Drinks/Week oz/Week Comments Alcohol Use Defer Sex Assigned at Date Recorded Not on file Industry Job Start Date Occupation Not on file Not on file Not on file Travel End Travel History Travel Start No recent travel history available. Date Recorded COVID-19 Exposure Response 09/23/2019 3:22 PM CDT In the last month, have you been in contact with No / Unsure someone who was confirmed or suspected to have Coronavirus / COVID-19? Last Filed Vital Signs Reading Time Taken Comments Vital Sign 127/89 08/24/2019 1:30 PM CDT Blood Pressure 79 08/24/2019 1:30 PM CDT Pulse 36.3 C (97.4 F) 03/18/2019 8:47 PM [facility] Temperature 20 03/18/2019 11:00 PM [facility] Respiratory Rate 100% 03/18/2019 11:00 PM [facility] Oxygen Saturation - - Inhaled Oxygen Concentration 44 kg (97 lb) 09/20/2019 1:14 PM CDT Weight 165.1 cm (5' 5") 09/20/2019 1:14 PM CDT Height 16.14 09/20/2019 1:14 PM CDT Body Mass Index Plan of Treatment Health Maintenance Due Date Last Done Comments CHLAMYDIA SCREENING 2013 CERVICAL CANCER SCREENING 2018 INFLUENZA VACCINE 10/08/2019 Procedures Comments Procedure Name Priority Date/Time Associated Diag nosis MRI CERVICAL SPINE W WO Routine 09/20/2019 Myelit is (HCC) CONTRAST 3:11 PM CDT MRI BRAIN W WO CONTRAST Routine 09/20/2019 Demyel inating changes in 2:54 PM CDT brain (HCC) RHEUMATOID FACTOR Routine 08/24/2019 Demyelinatin g changes in 2:46 PM CDT brain (HCC) SSA/SSB ANTIBODY Routine 08/24/2019 Demyelinating changes in 2:46 PM CDT brain (HCC) PIETER W/REFLEX IF POSITIVE Routine 08/24/2019 Demye linating changes in 2:46 PM CDT brain (HCC) T4, FREE Routine 08/24/2019 Hyperthyroidism 2:46 PM CDT THYROID STIMULATING Routine 08/24/2019 Hyperthyro idism HORMONE 2:46 PM CDT VITAMIN D 25 HYDROXY Routine 08/24/2019 Vitamin D deficiency LEVEL 2:46 PM CDT CBC WITH PLATELET AND Routine 08/24/2019 Demyelin ating changes in DIFFERENTIAL 2:46 PM CDT brain (HCC) Myelitis (HCC) COMPREHENSIVE METABOLIC Routine 08/24/2019 Demyel inating changes in PANEL 2:46 PM CDT brain (HCC) Myelitis (HCC) T4, FREE STAT 03/18/2019 10:50 PM [facility] THYROID STIMULATING STAT 03/18/2019 HORMONE 10:50 PM [facility]AR [facility] XR CHEST 2 VW STAT 03/18/2019 9:37 PM [facility] ESTIMATED GFR STAT 03/18/2019 9:00 PM [facility] D-DIMER STAT 03/18/2019 9:00 PM [facility] TROPONIN STAT 03/18/2019 9:00 PM [facility] COMPREHENSIVE METABOLIC STAT 03/18/2019 PANEL 9:00 PM [facility] HC COMPLETE BLD COUNT STAT 03/18/2019 W/AUTO DIFF 9:00 PM [facility] B NATRIURETIC PEPTIDE STAT 03/18/2019 9:00 PM GEAR [facility]ER ECG ED PRELIMINARY Routine 03/18/2019 INTERPRETATION 8:53 PM [facility] ECG 12-LEAD Routine 03/18/2019 8:48 PM [facility] after 10/13/2018 Results * MRI Cervical Spine W Wo Contrast (09/20/2019 3:11 PM CDT) Specimen Narrative Performed At [facility] EXAMINATION: MRI CERVICAL SPINE W WO CONTRAST COMPARISON: None CLINICAL HISTORY: G04.91 Myelitis u nspecified, myelitis COMMENTS: Sagittal and axial pre and post contrast MR images of the cervical spine were obtained. FINDINGS: The signal within the spina l cord is intact. There are minimal disc bulges in the mi d and lower cervical spine. There is minimal facet disease. No enhancing lesions are identified. IMPRESSION: Minimal degenerative chowdary ge. [id number] Procedure Note Interface, Radiology Results Incoming - 09/20/2019 4:00 PM CDT EXAMINATION: MRI CERVICAL SPINE W WO CONTRAST COMPARISON: None CLINICAL HISTORY: G04.91 Myelitis unspecified, myelitis COMMENTS: Sagittal and axial pre and post contrast MR images of the cervical spine were obtained. FINDINGS: The signal within the spinal cord is intact. There are minimal disc bulges in the mid and lower cervical spine. There is minimal facet disease. No enhancing lesions are identified. IMPRESSION: Minimal degenerative change. [id number] Performing Organization Address City/State/Zipcode Ph one Number [facility] [address] [place] [address] * MRI Brain W Wo Contrast (09/20/2019 2:54 PM CDT) Specimen Narrative Performed At EXAMINATION: [facility]IN [facility] WO [facility] CLINICAL HISTORY: G37.9 Demyelinating d isease of central nervous system unspecified, white matter lesions COMPARISON: None TECHNIQUE: Multiplanar and multisequenc e MRI imaging of the brain was obtained with and without contrast. FINDINGS: No evidence of acute intracranial hemor rhage, brain parenchymal mass, mass effect, midline shift, acute infarct, o r demyelinating white matter lesion. Incidental pineal gland cyst measuring 1.2 x 1.2 cm without mass effect (series 4, image 17). Ventricles and sulci are normal in appearance for age. No abnormal intracranial enhancement. No abnormal s usceptibility. Basal cisterns are clear. Major intracranial flow voids are maintained. Orbits are normal in appearance. Scatte red areas of mild mucosal thickening within the paranasal sinuses. Trace rig ht mastoid fluid. IMPRESSION: No evidence of demyelinating lesion or acute intracranial abnormality. [id number] Procedure Note [facility], Radiology Results Incoming - 09/20/2019 3:46 PM CDT EXAMINATION: MRI BRAIN W WO CONTRAST CLINICAL HISTORY: G37.9 Demyelinating disease of central nervous system unspecified, white matter lesions COMPARISON: None TECHNIQUE: Multiplanar and multisequence MRI imaging of the brain was obtained with and without contrast. FINDINGS: No evidence of acute intracranial hemorrhage, brain parenchymal mass, mass effect, midline shift, acute infarct, or demyelinating white matter lesion. Incidental pineal gland cyst measuring 1.2 x 1.2 cm without mass effect (series 4, image 17). Ventricles and sulci are normal in appearance for age. No abnormal intracranial enhancement. No abnormal susceptibility. Basal cisterns are clear. Major intracranial flow voids are maintained. Orbits are normal in appearance. Scattered areas of mild mucosal thickening within the paranasal sinuses. Trace right mastoid fluid. IMPRESSION: No evidence of demyelinating lesion or acute intracranial abnormality. [id number] Performing Organization Address [facility] one Number HM [facility] [address] [place] [address] * PIETER w/Reflex if Positive (08/24/2019 2:46 PM CDT) PIETER direct Negative Negative [facility] Specimen Blood Narrative Performed At Performed at: 01 - [facility] [address] [place] [id number] Ground Support Equipment Fitter: Israel Lim MD, Phone: [phone] Performing Organization Address [facility] one Number [facility] * SSA/SSB antibody (08/24/2019 2:46 PM CDT) Sjogren's SS-A <0.2 0.0 - 0.9 AI [facility] antibody Sjogren's SS-B <0.2 0.0 - 0.9 AI [facility] antibody Specimen Blood Narrative Performed At Performed at: 01 - [facility] [address] [place] [id number] Ground Support Equipment Fitter: Israel Lim MD, Phone: [phone] Performing Organization Address [facility] one Number [facility] * Vitamin D 25 hydroxy level (08/24/2019 2:46 PM CDT) Vitamin D, 22.2 (L) 30.0 - 100.0 ng/mL [facility] 25-hydroxy Comment: Vitamin D deficiency has been defined by the [place] of [employer] and an Endocrine Society practice guideline as a level of serum 25-OH vitamin D less than 20 ng/mL (1,2). The Endocrine Society went on to further define vitamin D insufficiency as a level between 21 and 29 ng/mL (2). 1. IOM ([place] of [employer]). 2010. Dietary reference intakes for calcium and D. [place]: The National Academies Press. 2. Tatiana MF, Leni NC, Paulino YEN, et al. Evaluation, treatment, and prevention of vitamin D deficiency: an Endocrine Society clinical practice guideline. JCEM. 2010; 96(3):1911-30. Specimen Blood Narrative Performed At Performed at: 01 - [facility] [address] [place] [address] 3068 Ground Support Equipment Fitter: Israel Lim MD, Phone: [phone] Performing Organization Address City/State/Zipcode Ph one Number [facility] * CBC with platelet and differential (08/24/2019 2:46 PM CDT) Only the most recent of 2 results within the time period is included. WBC 5.2 3.4 - 10.8 x10E3/uL [facility] RBC 4.32 3.77 - 5.28 x10E6/uL [facility] HGB 13.1 11.1 - 15.9 g/dL [facility] HCT 41.2 34.0 - 46.6 % [facility] MCV 95 79 - 97 fL [facility] MCH 30.3 26.6 - 33.0 pg [facility] MCHC 31.8 31.5 - 35.7 g/dL [facility] RDW 13.1 11.7 - 15.4 % [facility] Platelet count 205 150 - 450 x10E3/uL [facility] Neutrophils 53 Not Estab. % [facility] Lymphocytes 34 Not Estab. % [facility] Monocytes 8 Not Estab. % [facility] Eosinophils 4 Not Estab. % [facility] Basophils 1 Not Estab. % [facility] Neutrophils, 2.8 1.4 - 7.0 x10E3/uL [facility] absolute Lymphocytes, 1.8 0.7 - 3.1 x10E3/uL [facility] absolute Monocytes, 0.4 0.1 - 0.9 x10E3/uL [facility] absolute Eosinophils, 0.2 0.0 - 0.4 x10E3/uL [facility] absolute Basophils, 0.0 0.0 - 0.2 x10E3/uL [facility] absolute Immature 0 Not Estab. % [facility] granulocytes Immature grans 0.0 0.0 - 0.1 x10E3/uL [facility] (abs) Specimen Blood Narrative Performed At Performed at: 01 - [facility] [address] [place] [address] 9276 Ground Support Equipment Fitter: Israel Lim MD, Phone: [phone] Performing Organization Address [facility] * Rheumatoid factor (08/24/2019 2:46 PM CDT) [facility] Rheumatoid <10.0 0.0 - 13.9 IU/mL [facility] arthritis latex turbid Specimen Blood Narrative Performed At Performed at: [facility] [address] 5716 Ground Support Equipment Fitter: Israel Lim MD, Phone: [phone] Performing Organization Address [facility] * Thyroid stimulating hormone (08/24/2019 2:46 PM CDT) Only the most recent of 2 results within the time period is included. [facility] TSH 1.390 0.450 - 4.500 uIU/mL [facility] Specimen Blood Narrative Performed At Performed at: [address] [place] [address] [address]6 Ground Support Equipment Fitter: Israel Lim MD, Phone: [phone] Performing Organization Address [facility] * T4, free (08/24/2019 2:46 PM CDT) Only the most recent of 2 results within the time period is included. [facility] T4, free 1.15 0.82 - 1.77 ng/dL [facility] Specimen Blood Narrative Performed At Performed at: [address] [place] [address] [address] 2784 Ground Support Equipment Fitter: Israel Lim MD, Phone: [phone] Performing Organization Address [facility] * Comprehensive metabolic panel (08/24/2019 2:46 PM CDT) Only the most recent of 2 results within the time period is included. [facility] Glucose 91 65 - 99 mg/dL [facility] BUN 12 6 - 20 mg/dL [facility] Creatinine 0.67 0.57 - 1.00 mg/dL [facility] EGFR Non-Afr. 126 >59 mL/min/1.73 [facility] [place] EGFR 145 >59 mL/min/1.73 [facility] [place] BUN/creatinine 18 9 - 23 [facility] ratio Sodium 140 134 - 144 mmol/L [facility] Potassium 4.1 3.5 - 5.2 mmol/L [facility] Chloride 98 96 - 106 mmol/L [facility] CO2 21 20 - 29 mmol/L [facility] Calcium 9.7 8.7 - 10.2 mg/dL [facility] Protein 7.6 6.0 - 8.5 g/dL [facility] Albumin, S 4.9 3.9 - 5.0 g/dL [facility] Globulin, total 2.7 1.5 - 4.5 g/dL [facility] Albumin/globuli 1.8 1.2 - 2.2 [facility] n ratio Total bilirubin 0.5 0.0 - 1.2 mg/dL [facility] Alkaline 90 39 - 117 IU/L [facility] phosphatase AST 30 0 - 40 IU/L [facility] ALT 32 0 - 32 IU/L [facility] Specimen Blood Narrative Performed At Performed at: [facility] [address] [place], [place] [id number] Ground Support Equipment Fitter: Israel Lim MD, Phone: [phone] Performing Organization Address [facility] Ph one Number [facility] * XR Chest 2 Vw (03/18/2019 9:37 PM [facility]) Specimen Narrative Performed At EXAMINATION: XR CHEST 2 VW [facility] CLINICAL HISTORY: chest pain COMPARISON: None IMPRESSION: 1. The heart and pulmonary vasculature are within normal limits. 2. No infiltrate or effusion is demonst rated. 3. There is no acute osseous pathology. CONCLUSION: NO RADIOGRAPHIC EVIDENCE OF ACUTE CARDIOPULMONARY ABNORMALITY. [facility]-[id number] Procedure Note Interface, Radiology Results Incoming - 03/18/2019 9:42 PM [facility] EXAMINATION: XR CHEST 2 VW CLINICAL HISTORY: chest pain COMPARISON: None IMPRESSION: 1. The heart and pulmonary vasculature a re within normal limits. 2. No infiltrate or effusion is demonstr ated. 3. There is no acute osseous pathology. CONCLUSION: NO RADIOGRAPHIC EVIDENCE OF ACUTE CARDIOPULMONARY ABNORMALITY. [facility]-[id number] Performing Organization Address [facility] Ph one Number [facility] [address] [place] [address] * Estimated GFR (03/18/2019 9:00 PM GEAR [facility]ER) Estimated GFR >=90 mL/min/1.73 m2 [place] Comment: BILLY VILLASENOR Catergory Units [facility] Interpretation G1 >=90 Normal or high G2 60-89 Mildly decreased G3a 45-59 Mildly to moderately decreased G3b 30-44 Moderately to severely decreased G4 15-29 Severely decreased G5 <15 Kidney failure The eGFR was calculated using the Chronic Kidney Disease Epidemiology Collaboration (CKD-EPI) equation. Interpretation is based on recommendations of the National Kidney Foundation-Kidney Disease Outcomes Quality Initiative (NKF-KDOQI) published in 2014. Specimen Plasma specimen Performing Organization Address City/[facility] [place] [address] [place] [address] PATHOLOGY AND GENOMIC MEDICINE [place] BILLY VILLAS[place]OR [address] [place] [address] [facility] * Troponin (03/18/2019 9:00 PM [facility]ER) Troponin 0.019 0.000 - 0.040 ng/mL [place] Comment: BILLY VILLASENOR In patients suspected of [facility] having a myocardial infarction, along with all other appropriate clinical measures and actions including ECG and other diagnostics as appropriate, measure Ultra TnI at 0 hrs and at 3 hrs. Myocardial infarction VERY LIKELY The 0 hr TnI level is > 0.10 ng/mL Myocardial infarction LIKELY The 0 hr TnI level is > 0.04 ng/mL and 3 hr level is increased or decreased by at least 0.020 ng/mL Myocardial infarction VERY UNLIKELY Both the 0 hr and 3 hr TnI levels <= 0.04 ng/mL(within normal limits) OR 0 hr is > 0.04 ng/mL and 3 hr is increased OR decreased by less than 0.020 ng/mL Specimen Plasma specimen Performing Organization Address City/[facility] one Number [facility] [place] [address] [place] [address] PATHOLOGY AND [facility] MEDICINE [facility] [address] [address] * D-dimer (03/18/2019 9:00 PM GEAR [facility]ER) Pathologist [facility] D-dimer <0.27 0.00 - 0.40 ug/mL [place] Comment: FEU [facility] Units are ug/ml Fibrinogen [facility] Equivalent Unit. When combined with low clinical probability, D-dimer results of less than 0.5 ug/ml FEU have a good negative predictive value in excluding PE or DVT. For D-dimer results greater than 0.5 ug/ml FEU further testing is indicated if PE or DVT is suspected clinically. Elevated D-dimer results have been reported in DVT, PE, and DIC cases and may indicate the presence of a clot. D-dimer results may be elevated due to old age, , inflammatory diseases, trauma, post-operative states, sepsis, and malignancies. Specimen Blood Performing Organization Address [facility] one Number [facility] [place] [address] [address] [place] [address] PATHOLOGY AND [facility] MEDICINE [facility] [address] [address] [place] * B natriuretic peptide (03/18/2019 9:00 PM GEAR CH[facility]ER) Pathologist [facility] BNP 9 0 - 100 pg/mL [facility] Specimen Blood Performing Organization Address [facility] one Number [facility] [place] [address] [address] [place] [address] PATHOLOGY AND GENOMIC MEDICINE [facility] [address] [address] [place] * ECG ED Preliminary Interpretation - Not an Order (03/18/2019 8:53 PM GEAR CH[facility]ER) Narrative Performed At Alphonso Donis MD 020 5:23 AM ECG ED Preliminary Interpretation - Not an Order Performed by: Alphonso Donis M D Authorized by: Alphonso Donis MD ECG reviewed by ED Physician in the abs ence of a auto slip cover installer: no Interpretation: Interpretation: abnormal Rate: ECG rate: 105 ECG rate assessment: tachycardic Rhythm: Rhythm: sinus tachycardia QRS: QRS axis: Normal QRS intervals: Normal Conduction: Conduction: abnormal Abnormal conduction: incomplete RBBB ST segments: ST segments: Non-specific Depression: V3, V4, V5 and V6 T waves: T waves: normal Comments: R atrial enlargement * ECG 12 lead (03/18/2019 8:48 PM [facility]ER) Ventricular 105 [facility] rate Atrial rate 105 [facility] IA interval 140 [facility] QRSD interval 106 [facility] QT interval 342 [facility] QTC interval 452 [facility] P axis 1 78 [facility] QRS axis 1 91 [facility] T wave axis 37 [facility] EKG impression Sinus tachycardia-Right atrial [facility] MU SE enlargement-Incomplete right bundle branch block-Possible Right ventricular hypertrophy-Abnormal ECG-No previous ECGs available- Specimen Performing Organization Address [facility] Ph one Number [facility] M[facility] [address] [place] [address] after 10/13/2018 Insurance Type Payer Benefit Subscriber ID Effective Phone Address Plan / Dates Group [facility]-P [employer] HMO/POS/PP O Advance Directives For more information, please contact: [phone] Patient Premix Operator Concentrate Explanation Type Date Recorded Advance Directives, Living Will and Medical Power of Business Unit Director
[2019-10-14 23:34] LABS: FREE THYROXINE INDEX 2.4025 (1.4-3.8); THYROID STIMULATING HORMONE 1.246 uIU/mL (0.350-4.940)
--- NOTE | 2019-10-14 23:35 | Diagnostic Imaging Report ---
EXAMINATION: CHEST 2 VIEWS INDICATION: CHEST PAIN COMPARISON: None FINDINGS: TUBES and LINES: None. LUNGS: Subtle hazy opacity excuse the right heart border without correlate on lateral view. The left lung is clear. PLEURA: No pleural effusion or pneumothorax. HEART AND MEDIASTINUM: The cardiomediastinal silhouette is unremarkable. BONES AND SOFT TISSUES: No acute osseous lesion. Soft tissues are unremarkable. UPPER ABDOMEN: No free air under the diaphragm. IMPRESSION: Subtile hazy opacity obscures the right heart border without abnormality on the lateral view. This appearance could be seen with pectus excavatum or mild atelectasis. Pneumonia less likely. Signed by: Rian Villalobos MD on 10/14/2019 11:32 PM
[2019-10-15] VITALS (9 sets, daily range): BP systolic 97–108; BP diastolic 65–83
[2019-10-15] MEDS ORDERED: METOCLOPRAMIDE HCL 10 MG/2ML VIAL IV ONE (00:15)
[2019-10-15] MEDS: SODIUM CHLORIDE 0.9% 1000ML 1,000 ML IV SCH ×3 (00:22→20:00)
--- OUTSIDE RECORDS SUMMARY | 2019-10-15 00:49 | XMS REPORT | Continuity of Care Document ---
Author Author [facility] t Organization [facility] Address [address] [place] [address] Phone Unavailable Care Team Providers Care Urgent Care Name Role Phone Taniya ALEXANDER, Kelly Tucker PCP Mario ALONSO Attphys Unavailable Loly ALEXANDER, Deandra Attphys JENNY KRAFT Attphys Unavailable Gagandeep ALEXANDER, Keny Werner Attphys [phone] ORTEGA ALCARAZ Attphyleigh Unavailable Payers Payer Name Policy Type Policy Number Effective Date Expiration Date S huy [facility]ER[facility] HMO/POS/PPOxxxxxxxxx2019- PresentPPO xxxxxxxxx 2019 00:00:00 Roby Saunders Problems [...] Quantity Comments Source Sex Assigned At [place] Saundesr Exposure to SARS-CoV-2 (event) Not sure Roby [...] Procedure Date / Time Performed Performing Clinician Juan waldron MRI CERVICAL SPINE W WO CONTRAST 2019-09-20 [...] hodjuliana RHEUMATOID FACTOR 2019-08-24 14:46:00 Deandra [facility] THYROID STIMULATING HORMONE 2019-03-18 22:50:00 Rey Mortensen T4, FREE 2019-03-18 22:50:00 Rey Mortensen on [facility] XR CHEST 2 VW 2019-03-18 21:37:25 Rey Mortensen on [facility] B NATRIURETIC PEPTIDE 2019-03-18 21:00:00 Rey Mortensen [facility] HC COMPLETE BLD COUNT W/AUTO DIFF 2019-03-18 21:00:00 Netta Mortensen se [facility] COMPREHENSIVE METABOLIC PANEL 2019-03-18 21:00:00 Rey Mortensen TROPONIN 2019-03-18 21:00:00 Rey Mortensen on [facility] D-DIMER 2019-03-18 21:00:00 Rey Mortensen on [facility] ESTIMATED GFR 2019-03-18 21:00:00 Rey Mortensen [facility] ECG ED PRELIMINARY INTERPRETATION 2019-03-18 20:53:31 Netta Mortensen se [facility] ECG 12-LEAD 2019-03-18 20:48:45 Rey Mortensen on [facility] Plan of Care Planned Activity Planned Date Details Comments Source Future Scheduled Test 2019-10-08 00:00:00 INFLUENZA VACCINE [code = INFLUENZA VACCINE] Roby Saunders Future Scheduled Test 2018 00:00:00 Screening for avinash gnant neoplasm of cervix (procedure) [code = 328554282] Roby Barry t Future Scheduled Test 2013 00:00:00 CHLAMYDIA SCREENIN G [code = CHLAMYDIA SCREENING] Roby Saunders Encounters Start Date/Time End Date/Time Encounter Type Admission Type [facility] Care Department Encounter ID Source 2019-09-28 00:00:00 2019-09-28 00:00:00 Outpatient [facility] [id number] Roby Saunders 2019-09-20 00:00:00 2019-09-20 00:00:00 Outpatient [facility] [id number] Roby Saunders 2019-09-20 00:00:00 2019-09-20 00:00:00 Outpatient [facility] [id number] Roby Saunders 2019-08-24 00:00:00 2019-08-24 00:00:00 Outpatient [facility] [id number] Roby Saunders 2019-08-24 00:00:00 2019-08-24 00:00:00 Outpatient [facility] [id number] Roby Saunders 2019-03-18 00:00:00 2019-03-18 00:00:00 Emergency REY MORTENSEN 064 [id number] Roby Saunders Results Test Description Test Time Test Comments Results Result Comments Source CHEST 2 VIEWS 2019-10-14 23:26:00 [facility] [address] [address] Patient Name: FLORENCIA WHALEY MR #: [id number] : 1995 Age/Sex: 23/F Req #: [id number] Adm Physician: Ordered by: MUSTAPHA ALONSO MD Report #: [id number] Location: ER Room/Bed: Procedure: [id number] DX/CHEST 2 VIEWS Exam Date: 10/14/19 Exam Time: 2300 REPORT STATUS: Signed EXAMINATION: CHEST 2 VIEWS INDICATION: CHEST PAIN COMPARISON: None FINDINGS: TUBES and LINES: None. LUNGS: Subtle hazy opacity excuse the right heart border without correlate on lateral view. The left lung is clear. PLEURA: No pleural effusion or pneumothorax. HEART AND MEDIASTINUM: The cardiomediastinal silhouette is unremarkable. BONES AND SOFT TISSUES: No acute osseous lesion. Soft tissues are unremarkable. UPPER ABDOMEN: No free air under the diaphragm. IMPRESSION: Subtile hazy opacity obscures the right heart border without abnormality on the lateral view. This appearance could be seen with pectus excavatum or mild atelectasis. Pneumonia less likely. Signed by: Shavonne Villalobos MD on 10/14/2019 11:32 PM Dictated By: SHAVONNE VILLALOBOS MD 31 Transcribed By: ZECHARIAH on 10/14/192331 COPY TO: MUSTAPHA ALONSO MD SMALL BOWEL SERIES 2019-09-27 15:46:[address] [address] Patient Name: FLORENCIA WHALEY MR #: [id number] : 1995 Age/Sex: 23/F Req #: [id number] Adm Physician: Ordered by: JENNY KRAFT MD Report #: [id number] Location: DX Room/Bed: Procedure: [id number] DX/SMALL BOWEL SERIES Exam Date: 09/27/19 Exam Time: 1423 REPORT STATUS: Signed Small bowel follow-through Comparison: None Clinical History: Abdominal bloating with small amounts of oral intake, difficulty to digest meats, weight loss of 15-20 pounds over the past 2 months. Total Patient Fluoro Time: 0.4 minutes Radiation dose: 3.23 mGy Kerma-area. Total number of images submitted: Multiple. [facility]ist radiographs were obtained. After oral ingestion of [...] the diagnostic sensitivity of this exam. Report: [facility]: Nonobstructive bowel gas pattern. Copious amounts of [...] 4:06 PM Dictated By: BANDAR HARGROVE MD 160 Transcribed By: ZECHARIAH on 09/27/19 160 COPY TO: JENNY KRAFT MD GASTRIC EMPTYING 2019-09-16 16:24:[address] [address] Patient Name: FLORENCIA WHALEY MR #: [id number] : 1995 Age/Sex: 23/F Req #: [id number] Adm Physician: Ordered by: JENNY KRAFT MD Report #: [id number] Location: [place] Room/Bed: Procedure: [id number] NM/GASTRIC EMPTYING Exam Date: 09/16/19 Exam Time: 1000 REPORT STATUS: Signed Solid-phase gastric emptying study Reason for examination: Bloating and nausea The protocol used for this study is based on the Consensus Recommendations for Gastric Scintigraphy by the [place] Neurogastroenter[employer] and [employer] Society and the Society [...] = 2160-0) 0.67 mg/dL 0.57-1 EGFR Non-Afr. Palestinian (test code = 2775) 126 mL/min/1.73 >59 EGFR (test code = 2774) 145 mL/min/1.73 >59 BUN/creatinine ratio (test code = 3097-3) 18 9-23 Sodium (test code = 2951-2) 140 mmol/L 134-144 Potassium (test code = 2823-3) 4.1 mmol/L 3.5-5.2 Chloride (test code = 2075-0) 98 mmol/L 96-106 CO2 (test code = 8-9) 21 mmol/L 20-29 Calcium (test code = 44842-2) 9.7 mg/dL 8.7-10.2 Protein (test code = 2885-2) 7.6 g/dL 6-8.5 Albumin, S (test code = 1751-7) 4.9 g/dL 3.9-5 Globulin, total (test code = 52688-7) 2.7 g/dL 1.5-4.5 Albumin/globulin ratio (test code = 1759-0) 1.8 1.2-2.2 Total bilirubin (test code = 1975-2) 0.5 mg/dL 0-1.2 Alkaline phosphatase (test code = 6768-6) 90 39- 117 IU/L AST (test code = 1920-8) 30 0- 40 IU/L ALT (test code = 1742-6) 32 0- 32 IU/L GLADYS (test code = GLADYS) Performed at: [address] [place] [address] [id number] Director: Israel Lim MD, Phone: [phone] [place] [facility], [id number] 14:10:00* Test Item Value Reference Range Interpretation Comments T4, free (test code = 3024-7) 1.15 ng/dL 0.82-1.77 GLADYS (test code = GLADYS) Performed at: [address] [place] [address] [id number] Director: Israel Lim MD, Phone: [phone] [place] MethodistThyroid stimulating fhvlezp8132-45-69 14:10:00* Test Item Value Reference Range Interpretation Comments TSH (test code = 86934-5) 1.390 0.450- 4.500 uIU/mL GLADYS (test code = GLADYS) Performed at: [address] [place] [address] [id number] Director: Israel Lim MD, Phone: [phone] [place] MethodistRheumatoid clumhd4116-38-13 14:10:00* Test Item Value Reference Range Interpretation Comments Rheumatoid arthritis latex turbid (test code = 51021-6) <10.0 0.0- 13.9 IU/mL GLADYS (test code = GLADYS) Performed at: [address] [place] [address] [id number] Director: Israel Lim MD, Phone: [phone] [facility] with platelet and lcxijybunggg9228-82-63 14:10:00* Test Item Value Reference Range Interpretation [...] x10E3 /uL Immature granulocytes (test code = 45623-2) 0 % Not Estab. Immature grans (abs) (test code = 69504-7) 0.0 0.0- 0.1 x1 0E3/uL GLADYS (test code = GLADYS) Performed at: 01 - [facility] [address] [id number] Director: Israel Lim MD, Phone: [phone] [place] MethodistVitamin D 25 hydroxy qhjeu5234-32-22 14:10:00* Test Item Value Reference Range Interpretation Comments Vitamin D, 25-hydroxy (test code = 16674-4) 22.2 ng/mL 30-100 L Vitamin D deficiency has been defined by the [place] ofMedicine and an Endocrine Society practice guideline as alevel of serum 25-OH vitamin D less than 20 ng/mL (1,2).The Endocrine Society went on to further define vitamin Dinsufficiency as a level between 21 and 29 ng/mL (2).1. IOM ([place] of Medicine). 2010. Dietary reference intakes for calcium and D. [place]: The National Academies Press.2. Tatiana MF, Leni DIAZ, Paulino YEN, et al. Evaluation, treatment, and prevention of vitamin D deficiency: an Endocrine Society clinical practice guideline. JCEM. 2010; 96(7):1911-30. GLADYS (test code = GLADYS) Performed at: [facility] [address] [id number] Director: Israel Lim MD, Phone: [phone] Lab Interpretation (test code = 14012-0) Abnormal [place] MethodistSSA/SSB yxetjnqe5106-95-06 14:10:00* Test Item Value Reference Range Interpretation Comments Sjogren's SS-A antibody (test code = 31718-2) <0.2 0.0- 0.9 AI Sjogren's SS-B antibody (test code = 31591-4) <0.2 0.0- 0.9 AI GLADYS (test code = GLADYS) Performed at: [facility] [address] [id number] Director: Israel Lim MD, Phone: [phone] [place] MethodistANA w/Reflex if Wwkkbusr4718-24-76 14:10:00* Test Item Value Reference Range Interpretation Comments PIETER direct (test code = 8061-4) Negative Negative GLADYS (test code = GLADYS) Performed at: [facility] [id number] Director: Israel Lim MD, Phone: [phone] Roby YapOpvwdcogmM-oqsvd7049-59-10 23:15:46* Test Item Value Reference Range Interpretation Comments D-dimer (test code = 02627-8) <0.27 0.00- 0.40 ug/mL FEU Units are [...] diseases, trauma, post-operative states, sepsis, and malignancies. Roby FultonFnnxhzewsViuyumcb0887-20-00 23:01:35* Test Item Value Reference Range Interpretation Comments Troponin (test code = 29759-1) 0.019 ng/mL 0-0.04 In patients suspected of [...] OR decreased by less than 0.020 ng/mL [place] MethodistB natriuretic axgavts2265-63-35 23:00:12* Test Item Value Reference Range Interpretation Comments BNP (test code = 07440-5) 9 pg/mL 0-100 [place] MethodistEstimated [id number] 22:32:40* Test Item Value Reference Range Interpretation Comments Estimated GFR (test code = 5488) >=90 mL/min/1.73 m2 Catergory Units InterpretationG1 >=90 Normal or highG2 60-89 Mildly nkhxblupuS9d 45-59 Mildly to moderately eeddamkmnE8l 30-44 Moderately to severely decreasedG4 15-29 Severely decreasedG5 <15 Kidney failureThe eGFR was calculated using the Chronic Kidney Disease Epidemiology Collaboration (CKD-EPI) equation. Interpretation is based on recommendations of the National Kidney Foundation-Kidney Disease Outcomes Quality Initiative (NKF-KDOQI) published in 2014. [place] [facility] [place] 12 utzp2803-73-47 21:56:02* Test Item Value Reference Range Interpretation Comments Ventricular rate (test code = 253) 105 Atrial rate (test code = 255) 105 IL interval (test code = 266) 140 QRSD [...] ventricular hypertrophy- Abnormal ECG-No previous ECGs available- [place] MethodistXR Chest 2 Ag9521-92-24 21:39:33Hm Interface, Radiology Results Incoming - 03/18/2019 9:42 PM CSTEXAMINATION: XR CHEST 2 VWCLINICAL HISTORY: chest painCOMPARISON: NoneIMPRESSION:1. The heart and pulmonary vasculature are within normal limits.2. No infiltrate or effusion is demonstrated.3. There is no acute osseous pathology.CONCLUSION: NO RADIOGRAPHIC EVIDENCE OF ACUTE CARDIOPULMONARY ABNORMALITY.[facility]-[id number] [facility] [place] ED Preliminary Interpretation - Not an Twbap9330-63-26 20:53:31* Test Item Value Reference Range Interpretation Comments GLADYS (test code = GLADYS) Rey Mortensen MD 03/19/2019 5:23 [facility] ED Preliminary Interpretation - Not an OrderPerformed by: Rey Mortensen MDAuthorized by: Rey Mortensen MD ECG reviewed by ED Physician in the absence of a web marketing coordinator: no Interpretation: Interpretation: abnormal Rate: ECG rate: 105 ECG rate assessment: tachycardic Rhythm: Rhythm: sinus tachycardia QRS: QRS axis: Normal QRS intervals: NormalConduction: Conduction: abnormal Abnormal conduction: incomplete RBBB ST segments: ST segments: Non-specific Depression: V3, V4, V5 and V6T waves: T waves: n ormal Comments: R atrial enlargement Lab Interpretation (test code = 24818-5) Abnormal [place] XjzxegdedPAJONFCUZQMM8566-77-35 16:14:[address] [address] Patient Name: FLORENCIA WHALEY MR #: [id number] : 1995 Age/Sex: 21/F Req #: [id number] Adm Physician: Ordered by: ORTEGA ALCARAZ DO Report #: [id number] Location: [place] Room/Bed: Procedure: [id number] NM/HEPTOBILIARY Exam Date: Exam Time: 1215 REPORT [...] COPY TO: ORTEGA ALCARAZ DO CT ABDOMEN/PELVIS ESL5046-90-37 19:17:00 [address] [address] Patient Name: FLORENCIA WHALEY MR #: [id number] : 1995 Age/Sex: 21/F Req #: [id number] Adm Physician: Ordered by: ORTEGA ALCARAZ DO Report #: [id number] Location: CT Room/Bed: Procedure: [id number] CT/CT ABDOMEN/PELVIS WOW Exam Gustavo e: 10/02/17 Exam Time: 1850 REPORT STATUS: Sign ed EXAM: CT Abdomen and Pelvis WITHOUT and WITH contrast INDICATION: Timmy turia COMPARISON: None. TECHNIQUE: Abdomen and pelvis were scanned util[employer] Life 360in g a multidetector helical scanner from the [...]
--- OUTSIDE RECORDS SUMMARY | 2019-10-15 00:49 | XMS REPORT | Clinical Summary ---
Author Author [facility] Address Unknown Phone Unavailable Care Team Providers Care Collection Coordinator Name Role Phone Garrett Monahan MD PCP [...] (Primary Dx) 03/18/2019 Emergency Emergency Medicine after 10/14/2018 Social History Date Tobacco Use Types Packs/Day [...] 36.3 C (97.4 F) 03/18/2019 8:47 PM PERSONAL LINES ACCOUNT MANAGER Temperature 20 03/18/2019 11:00 PM PERSONAL LINES ACCOUNT MANAGER Respiratory Rate 100% 03/18/2019 11:00 PM PERSONAL LINES ACCOUNT MANAGER Oxygen Saturation - - Inhaled Oxygen Concentration [...] (HCC) T4, FREE STAT 03/18/2019 10:50 PM PERSONAL LINES ACCOUNT MANAGER THYROID STIMULATING STAT 03/18/2019 HORMONE 10:50 PM PERSONAL LINES ACCOUNT MANAGER XR CHEST 2 VW STAT 03/18/2019 9:37 PM PERSONAL LINES ACCOUNT MANAGER ESTIMATED GFR STAT 03/18/2019 9:00 PM PERSONAL LINES ACCOUNT MANAGER D-DIMER STAT 03/18/2019 9:00 PM PERSONAL LINES ACCOUNT MANAGER TROPONIN STAT 03/18/2019 9:00 PM PERSONAL LINES ACCOUNT MANAGER COMPREHENSIVE METABOLIC STAT 03/18/2019 PANEL 9:00 PM PERSONAL LINES ACCOUNT MANAGER HC COMPLETE BLD COUNT STAT 03/18/2019 W/AUTO DIFF 9:00 PM PERSONAL LINES ACCOUNT MANAGER B NATRIURETIC PEPTIDE STAT 03/18/2019 9:00 PM PERSONAL LINES ACCOUNT MANAGER ECG ED PRELIMINARY Routine 03/18/2019 INTERPRETATION 8:53 PM PERSONAL LINES ACCOUNT MANAGER ECG 12-LEAD Routine 03/18/2019 8:48 PM PERSONAL LINES ACCOUNT MANAGER after 10/14/2018 Results * MRI Cervical Spine W Wo [...] are identified. IMPRESSION: Minimal degenerative chowdary ge. [id number] Procedure Note Interface, Radiology Results Incoming - [...] lesions are identified. IMPRESSION: Minimal degenerative change. [id number] Performing Organization Address City/State/Zipcode Ph one Number [facility] [address] [place] [address] * MRI Brain W Wo Contrast (09/20/2019 2:54 PM CDT) Specimen Narrative Performed At EXAMINATION: [facility] WO [facility] CLINICAL [facility]: G37.9 Demyelinating d [...] of demyelinating lesion or acute intracranial abnormality. [id number] Procedure Note [facility], Radiology Results Incoming - 09/20/2019 3:46 PM [...] of demyelinating lesion or acute intracranial abnormality. [id number] Performing Organization Address [facility] one Number HM [facility] [address] [place] [address] * PIETER w/Reflex if Positive (08/24/2019 2:46 PM CDT) PIETER direct Negative Negative [facility] Specimen Blood Narrative Performed At Performed at: 01 - [facility] [address] [place] [id number] 4020 Chemistry Department Chair: Israel Lim MD, Phone: [phone] Performing Organization Address [facility] one Number [facility] * SSA/SSB antibody (08/24/2019 2:46 PM CDT) Sjogren's SS-A <0.2 0.0 - 0.9 AI [facility] antibody Sjogren's SS-B <0.2 0.0 - 0.9 AI [facility] antibody Specimen Blood Narrative Performed At Performed at: 01 - [facility] [address] [place] [id number] Chemistry Department Chair: Israel Lim MD, Phone: [phone] Performing Organization Address [facility] one Number [facility] * Vitamin D 25 hydroxy level (08/24/2019 2:46 PM CDT) Vitamin D, 22.2 (L) 30.0 - 100.0 ng/mL [facility] 25-hydroxy Comment: Vitamin D deficiency has been defined by the [place] of [employer] and an Endocrine Society practice guideline as a level of serum 25-OH vitamin D less than 20 ng/mL (1,2). The Endocrine Society went on to further define vitamin D insufficiency as a level between 21 and 29 ng/mL (2). 1. IOM ([place] of [employer]). 2010. Dietary reference intakes for calcium and D. [place]: The National Academies Press. 2. Tatiana MF, Leni NC, Paulino YEN, et al. Evaluation, treatment, and prevention of vitamin D deficiency: an Endocrine Society clinical practice guideline. JCEM. 2010; 96(0):1911-30. Specimen Blood Narrative Performed At Performed at: 01 - [facility] [address] [place] [address] 5018 Chemistry Department Chair: Israel Lim MD, Phone: [phone] Performing Organization Address City/State/Zipcode Ph one Number [...] Performed At Performed at: 01 - [facility] [address] [place] [address] 4860 Chemistry Department Chair: Israel Lim MD, Phone: [phone] Performing Organization Address [facility] one [facility] * Rheumatoid factor (08/24/2019 2:46 PM CDT) [facility] Rheumatoid <10.0 0.0 - 13.9 IU/mL [facility] arthritis latex turbid Specimen Blood Narrative Performed At Performed at: [facility] [address] [address] 6[address] Chemistry Department Chair: Israel Lim MD, Phone: [phone] Performing Organization Address [facility] one [facility] * Thyroid stimulating hormone (08/24/2019 2:46 PM CDT) Only the most recent of 2 results within the time period is included. [facility] TSH 1.390 0.450 - 4.500 uIU/mL [facility] Specimen Blood Narrative Performed At Performed at: [address] [place] [address] [address] Chemistry Department Chair: Israel Lim MD, Phone: [phone] Performing Organization Address [facility] one [facility] * T4, free (08/24/2019 2:46 PM CDT) Only the most recent of 2 results within the time period is included. [facility] T4, free 1.15 0.82 - 1.77 ng/dL [facility] Specimen Blood Narrative Performed At Performed at: [address] [place] [address] [address] Chemistry Department Chair: Israel Lim MD, Phone: [phone] Performing Organization Address [facility] one [facility] * Comprehensive metabolic panel (08/24/2019 2:46 PM CDT) Only the most recent of 2 results within the time period is included. [facility] Glucose 91 65 - 99 mg/dL [facility] [...] Specimen Blood Narrative Performed At Performed at: [facility] [address] [place], [place] [id number] 4166 Chemistry Department Chair: Israel Lim MD, Phone: [phone] Performing Organization Address [facility] Ph one Number [facility] * XR Chest 2 Vw (03/18/2019 9:37 PM PERSONAL LINES ACCOUNT MANAGER) Specimen Narrative Performed At EXAMINATION: XR CHEST 2 VW [facility] CLINICAL HISTORY: chest pain COMPARISON: None IMPRESSION: 1. The heart and pulmonary vasculature are within normal limits. 2. No infiltrate or effusion is demonst rated. 3. There is no acute osseous pathology. CONCLUSION: NO RADIOGRAPHIC EVIDENCE OF ACUTE CARDIOPULMONARY ABNORMALITY. [id number] Procedure Note Interface, Radiology Results Incoming - 03/18/2019 9:42 PM PERSONAL LINES ACCOUNT MANAGER EXAMINATION: XR CHEST 2 VW CLINICAL HISTORY: chest pain COMPARISON: None IMPRESSION: 1. The heart and pulmonary vasculature a re within normal limits. 2. No infiltrate or effusion is demonstr ated. 3. There is no acute osseous pathology. CONCLUSION: NO RADIOGRAPHIC EVIDENCE OF ACUTE CARDIOPULMONARY ABNORMALITY. [id number] Performing Organization Address [facility] Ph one Number [facility] [address] [place] [address] * Estimated GFR (03/18/2019 9:00 PM PERSONAL LINES ACCOUNT MANAGER) Estimated GFR >=90 mL/min/1.73 m2 [facility] Comment: BILLY VILLASENOR Catergory Units [facility] Interpretation G1 >=90 Normal or [...] 2014. Specimen Plasma specimen Performing Organization Address City/[facility] [place] [address] [place] [address] PATHOLOGY AND GENOMIC MEDICINE [facility] [place]Y [place] [address] [place] [address] [facility] * Troponin (03/18/2019 9:00 PM PERSONAL LINES ACCOUNT MANAGER) Troponin 0.019 0.000 - 0.040 ng/mL [facility] Comment: BILLY VILLASENOR In patients suspected of [facility] having a myocardial infarction, along [...] ng/mL Specimen Plasma specimen Performing Organization Address City/[facility] one Number [facility] [place] [address] [place] [address] PATHOLOGY AND [facility] MEDICINE [facility] [address] [address] * D-dimer (03/18/2019 9:00 PM PERSONAL LINES ACCOUNT MANAGER) Pathologist [facility] D-dimer <0.27 0.00 - 0.40 ug/mL [facility] Comment: [facility] Units are ug/ml Fibrinogen [facility] Equivalent Unit. When combined with [...] Specimen Blood Performing Organization Address [facility] one Number [facility] [place] [address] [address] [place] [address] PATHOLOGY AND [facility] MEDICINE [facility] [address] [address] * B natriuretic peptide (03/18/2019 9:00 PM PERSONAL LINES ACCOUNT MANAGER) Pathologist [facility] BNP 9 0 - 100 pg/mL [facility] Specimen Blood Performing Organization Address [facility] one Number [facility] [place] [address] [address] [place] [address] PATHOLOGY AND GENOMIC MEDICINE [facility] [address] [address] [place] * ECG ED Preliminary Interpretation - Not an Order (03/18/2019 8:53 PM PERSONAL LINES ACCOUNT MANAGER) Narrative Performed At Alphonso Donis MD 020 5:23 AM ECG ED Preliminary Interpretation - Not an Order Performed by: Alphonso Donis M D Authorized by: Alphonso Donis MD ECG reviewed by ED Physician in the abs ence of a ironworker machine operator: no Interpretation: Interpretation: abnormal Rate: ECG rate: 105 ECG rate assessment: tachycardic Rhythm: Rhythm: sinus tachycardia QRS: QRS axis: Normal QRS intervals: Normal Conduction: Conduction: abnormal Abnormal conduction: incomplete RBBB ST segments: ST segments: Non-specific Depression: V3, V4, V5 and V6 T waves: T waves: normal Comments: R atrial enlargement * ECG 12 lead (03/18/2019 8:48 PM PERSONAL LINES ACCOUNT MANAGER) Ventricular 105 [facility] rate Atrial rate 105 [facility] AL interval 140 [facility] QRSD interval 106 [facility] QT interval 342 [facility] QTC interval 452 [facility] P axis 1 78 [facility] QRS axis 1 91 [facility] T wave axis 37 [facility] EKG impression Sinus tachycardia-Right atrial [facility] MU SE enlargement-Incomplete right bundle branch block-Possible Right ventricular hypertrophy-Abnormal ECG-No previous ECGs available- Specimen Performing Organization Address City/State/[facility] Ph one Number [facility] MUSE [address] [place] [address] after 10/14/2018 Insurance Type Payer Benefit Subscriber ID Effective Phone Address Plan / Dates Group PPO [facility]-P [employer] COMMERCIAL HMO/POS/PP O Advance Directives For more information, please contact: [phone] Patient Soup Mixer Explanation Type Date Recorded Advance Directives, Living Will and Medical Power of Paper Stacker
--- NOTE | 2019-10-15 03:11 | NUR ---
patient is a new admit that arrived via the stretcher. patient is awake and talking. received all scheduled medications. patient has been helped into the bed. bed is in the lowest position and call light is within reach. will continue to monitor patient.
--- NOTE | 2019-10-15 07:14 | NUR ---
report given to day nurse.patient is resting in bed. bed is in lowest position and call light is within reach.
[2019-10-15] MEDS: METOCLOPRAMIDE HCL 10 MG/2ML VIAL IV SCH ×4 (07:50→21:00)
--- NOTE | 2019-10-15 14:33 | History and Physical ---
HISTORY OF PRESENT ILLNESS: The patient is [id number]. No past medical history, complaining of abdominal pain, especially vomiting for few days. No diarrhea, came to the hospital, found to be dehydrated, admitted to the hospital. REVIEW OF SYSTEMS: CARDIOVASCULAR: No chest pain or palpitation. RESPIRATORY: No shortness of breath. No cough. GASTROINTESTINAL: She has nausea and vomiting. No abdominal pain. No diarrhea. No blood in the stool. GENITOURINARY: No frequency or dysuria. ALLERGIES: SHE IS ALLERGIC TO PENICILLIN AND SULFA DRUGS. SOCIAL HISTORY: She does not smoke, she does not drink. PHYSICAL EXAMINATION: VITAL SIGNS: Blood pressure 101/78, temperature 98.3, heart rate 55 per minute, respiratory rate 18 per minute, O2 saturation 100%. LABORATORY STUDIES: CBC; white count 5.59, hemoglobin 14.5, hematocrit 43.4, platelet count 205,000. On BMP; sodium 140, potassium 4.2, chloride 107, CO2 23, BUN 10, creatinine 0.81, GFR 60, glucose 99, calcium 10.0, magnesium 2.1, total bilirubin 0.6, AST 36, ALT 31, alkaline phosphatase 83, creatine kinase 48, troponin 0.01, albumin 5.0, globin 3.2, vitamin B12 2000, TSH 1.246, free T4 2.40, T3 26.46. Coronavirus test is pending. is still pending. Chest x-ray was done also shows pneumonia less likely. FINAL IMPRESSION: 1. Vomiting. 2. Dehydration. 3. Rule out celiac disease. PLAN OF TREATMENT: Continue with the IV fluids, normal saline 100 mL an hour, metoclopramide 10 mg IV before meals and at bedtime. Gastroenterology consult with Dr. Jalil Jung. MD ZENAIDA Caro/CHANDLER /[id number]
--- NOTE | 2019-10-15 18:52 | NUR ---
AAOX3. ACYANOTIC. RESTING IN BED. NO DISTRESS NOTED. CALL LIGHT IN REACH. SIDE RAILS UP X2. BED LOW AND LOCKED. REPORT RECEIVED BY ONCOMING NURSE.
--- NOTE | 2019-10-15 19:44 | NUR ---
received report from day nurse. patient is resting comfortably in bed. bed is in lowest position and call light is within reach. will continue to monitor patient.
[2019-10-16] VITALS: BP 112/74
[2019-10-16 04:00] VITALS: BP 107/80
[2019-10-16] MEDS: SODIUM CHLORIDE 0.9% 1000ML 1,000 ML IV SCH (05:10)
--- NOTE | 2019-10-16 06:11 | NUR ---
Consulted physician on unit rounding on patient. MD states patient can go home pending blood work results. MD also wants primary physician to prescribe patient an appetite stimulant.
[2019-10-16 06:21] LABS: BASOPHILS # (AUTO) 0.1 (0.0-0.1); EOSINOPHILS # (AUTO) 0.2 (0.0-0.4); EOSINOPHILS % 3.5 % (0.0-6.0); HEMATOCRIT 36.4 % (34.2-44.1); LYMPHOCYTES % 41.3 % (18.0-39.1); MEAN CORPUSCULAR HEMOGLOBIN 30.7 pg (28-32); MEAN CORPUSCULAR VOLUME 93.1 fL (81-99); MONOCYTES # (AUTO) 0.5 (0.2-0.8); MONOCYTES % 10.6 % (4.4-11.3); NEUTROPHILS # (AUTO) 2.1 (2.1-6.9); NEUTROPHILS % 43.4 % (38.7-80.0); PLATELET COUNT 159 x10e3/uL (140-360); RED BLOOD COUNT 3.91 x10e6/uL (3.6-5.1)
[2019-10-16 06:33] LABS: ALANINE AMINOTRANSFERASE 22 IU/L (0-55); ALBUMIN 3.8 g/dL (3.5-5.0); ALBUMIN/GLOBULIN RATIO 1.7 (0.8-2.0); ALKALINE PHOSPHATASE 66 IU/L (40-150); ANION GAP 9.5 mmol/L (8-16); BLOOD UREA NITROGEN < 5 mg/dL (7-26); CALCIUM 8.6 mg/dL (8.4-10.2); CARBON DIOXIDE 23 mmol/L (22-29); CHLORIDE 110 mmol/L (98-107); CREATININE, SERUM 0.67 mg/dL (0.57-1.11); EST GLOMERULAR FILTRATION RATE > 60 ML/MIN (60-); GLUCOSE 90 mg/dL (74-118); POTASSIUM 3.5 mmol/L (3.5-5.1); SODIUM 139 mmol/L (136-145)
--- NOTE | 2019-10-16 07:02 | NUR ---
Patient is to DC home today, pending lab results
--- NOTE | 2019-10-16 07:10 | NUR ---
Report given to day nurse. patient is resting comfortably in the bed.
[2019-10-16 07:19] LABS: BUN/CREATININE RATIO 7 (6-25)
--- NOTE | 2019-10-16 07:27 | NUR ---
ASSUMED CARE. AWAKE AND ALERT. RESTING IN BED. ACYANOTIC. NO DISTRESS NOTED. CALL LIGHT IN REACH. SIDE RAILS UP X2. BED LOW AND LOCKED.
[2019-10-16] MEDS: METOCLOPRAMIDE HCL 10 MG/2ML VIAL IV SCH (08:15)
[2019-10-16 09:06] VITALS: BP 107/74
[2019-10-18 06:11] LABS: ENDOMYSIAL ANTIBODIES, IGA Negative (Negative)
== END 2019-10-16 10:22 | disposition home or self-care (01) ==
LOC: ER 22:10 → ERHOLD 10-15 00:46 → MED/SURG 10-15 02:51
DX: E86.0 Dehydration (principal); R00.2 Palpitations; R63.4 Abnormal weight loss; R14.0 Abdominal distension (gaseous); Z88.0 Allergy status to penicillin; Z88.2 Allergy status to sulfonamides
CPT/HCPCS: 36415 ×2; 71046; 80053 ×2; 80307; 81001; 81025; 82550; 82553; 82607; 82784; 83516; 83735; 84436; 84443; 84479; 84484; 85025 ×2; 85379; 86256; 87086; 93005; 99284; G0378 ×2; J2765 ×2; J7030 ×3; U0002

== ENCOUNTER 2021-08-15 19:12 | Emergency (ER) | payer BC, OTHER ==
[~2021-08-15] VITALS: Ht 165.1 cm; Wt 44.0 kg
[2021-08-15] MEDS ORDERED: SODIUM CHLORIDE 0.9% 1000ML 1,000 ML IV ONE (19:45)
[2021-08-15 20:02] LABS: BASOPHILS % 0.7 % (0.0-1.0); EOSINOPHILS # (AUTO) 0.1 (0.0-0.4); EOSINOPHILS % 2.3 % (0.0-6.0); HEMATOCRIT 39.4 % (34.2-44.1); HEMOGLOBIN 12.8 g/dL (12.0-16.0); LYMPHOCYTES # (AUTO) 1.8 (1.0-3.2); LYMPHOCYTES % 31.5 % (18.0-39.1); MEAN CORPUSCULAR HEMOGLOBIN 30.9 pg (28-32); MEAN CORPUSCULAR HGB CONC 32.5 g/dL (31-35); MEAN CORPUSCULAR VOLUME 95.2 fL (81-99); MONOCYTES # (AUTO) 0.4 (0.2-0.8); MONOCYTES % 7.2 % (4.4-11.3); NEUTROPHILS # (AUTO) 3.3 (2.1-6.9); NEUTROPHILS % 58.1 % (38.7-80.0); PLATELET COUNT 190 x10e3/uL (140-360); RED BLOOD COUNT 4.14 x10e6/uL (3.6-5.1); RED CELL DISTRIBUTION WIDTH 12.6 % (11.7-14.4)
[2021-08-15 20:21] LABS: ALANINE AMINOTRANSFERASE 23 IU/L (0-55); ALBUMIN 4.4 g/dL (3.5-5.0); ALBUMIN/GLOBULIN RATIO 1.2 (0.8-2.0); ALKALINE PHOSPHATASE 85 IU/L (40-150); ANION GAP 17.4 mmol/L (8-16); BLOOD UREA NITROGEN 12 mg/dL (7-26); BUN/CREATININE RATIO 16 (6-25); CALCIUM 9.3 mg/dL (8.4-10.2); CARBON DIOXIDE 22 mmol/L (22-29); CHLORIDE 104 mmol/L (98-107); CREATINE KINASE 66 IU/L (29-168); CREATININE, SERUM 0.73 mg/dL (0.57-1.11); GLUCOSE 107 mg/dL (74-118); POTASSIUM 3.4 mmol/L (3.5-5.1); SODIUM 140 mmol/L (136-145)
[2021-08-15] MEDS ORDERED: FAMOTIDINE 20 MG/2 ML VIAL IV STA (21:09)
[2021-08-15] MEDS ORDERED: DONNATAL/LIDOCAINE/MAALOX 30 ML SUSP PO STA (21:09)
[2021-08-15 21:18] LABS: CLARITY,URINE CLEAR (CLEAR); COLOR,URINE YELLOW (YELLOW); KETONES,URINE NEGATIVE (NEGATIVE); LEUKOCYTE ESTERASE ,URINE NEGATIVE (NEGATIVE); NITRITE,URINE NEGATIVE (NEGATIVE); PROTEIN,URINE DIPSTICK NEGATIVE (NEGATIVE); URINE UROBILINOGEN 0.2 mg/dL (0.2 - 1)
[2021-08-15 21:23] LABS: BACTERIA,URINE FEW /HPF; EPITHELIAL CELLS,URINE FEW /LPF; MUCUS,URINE FEW (RARE)
[2021-08-15] MEDS ORDERED: PEPCID20 MG PO (21:39)
[2021-08-15] MEDS ORDERED: LIDOCAINE VISC 2% SOLN 15 ML UDC PO ONE (21:45)
[2021-08-15] MEDS ORDERED: MAGNESIUM/ALUMINUM/SIMETHICONE 30 ML UDC PO ONE (21:45)
[2021-08-15] MEDS ORDERED: BELLADONNA ALK/PHENOBARBITAL 5 ML UDC PO ONE (21:45)
== END 2021-08-15 22:16 | disposition home or self-care (01) ==
LOC: ER 19:55
DX: R10.13 Epigastric pain (principal); K29.70 Gastritis, unspecified, without bleeding; R11.0 Nausea; I45.6 Pre-excitation syndrome; F41.9 Anxiety disorder, unspecified
CPT/HCPCS: 36415; 71045; 80053; 81001; 82550; 82553; 83690; 84484; 84702; 85025; 99284; J7030

== ENCOUNTER 2021-09-30 20:33 | Emergency (ER) | payer BC, OTHER ==
[~2021-09-30] VITALS: Ht 165.1 cm; Wt 49.9 kg
[~2021-09-30 20:33] MED LIST changes: +PANTOPRAZOLE SO40 MG PO; +PEPCID20 MG PO
[2021-09-30] MEDS ORDERED: ULTRAM 50MG50 MG PO (23:29)
== END 2021-09-30 23:30 | disposition home or self-care (01) ==
LOC: ER 20:57
DX: M54.2 Cervicalgia (principal); R94.02 Abnormal brain scan; K21.9 Gastro-esophageal reflux disease without esophagitis; I45.6 Pre-excitation syndrome; F41.9 Anxiety disorder, unspecified
CPT/HCPCS: 70450; 72125; 99283

== ENCOUNTER → 2021-12-03 | Outpatient (CLI) | payer BC ==
[~2021-12-03] MED LIST changes: +ULTRAM 50MG50 MG PO
== END ==
LOC: US 09:49
PROVIDERS: ATTEND Family Medicine
DX: R22.2 Localized swelling, mass and lump, trunk (principal)
CPT/HCPCS: 76882